=== PATIENT | female | born 1965 | race Caucasian/White ===

== ENCOUNTER → 2018-03-02 17:49 | Outpatient (CLI) | payer OTHER, SELFPAY | PROVIDERS: Family Provider Family Medicine; PCP Family Medicine; Visit Provider Chiropractor | DX: M99.03 Segmental and somatic dysfunction of lumbar region (principal); Z53.9 Procedure and treatment not carried out, unspecified reason; M99.04 Segmental and somatic dysfunction of sacral region; M99.05 Segmental and somatic dysfunction of pelvic region ==

== ENCOUNTER → 2018-03-07 11:24 | Outpatient (CLI) | payer OTHER, SELFPAY ==
--- NOTE | 2018-03-07 | DI.RAD.S_ITS ---
PROCEDURE: XR LUMBAR SPINE 6V W BENDING INDICATIONS: BACK PAIN TECHNIQUE: 7 views of the lumbar spine acquired. COMPARISON: None. FINDINGS: Bones: No fracture or focal osseous destruction. Trace retrolisthesis of L1 on L2. Diffuse endplate spurring and sclerosis. Mild dextrocurvature. There is diffuse facet arthropathy. Mild narrowing of the disc spaces from L2-S1. There is severe L1-L2 disc space narrowing. Soft tissues: Overlying bowel gas pattern is normal. No suspicious soft tissue calcifications. Flexion/extension: There is normal range of motion, with preserved normal alignment. IMPRESSION: Severe L1-L2 disc degeneration. No evidence of abnormal motion with flexion-extension lateral views. Diffuse lumbar disc degeneration and facet arthropathy Dictated by: Trey Rahman M.D. on 03/07/2018 at 13:41 Approved by: Trey Rahman M.D. on 03/07/2018 at 13:44
== END ==
PROVIDERS: Family Provider Family Medicine; PCP Family Medicine; Visit Provider Chiropractor
DX: M51.16 Intervertebral disc disorders with radiculopathy, lumbar region (principal); M47.26 Other spondylosis with radiculopathy, lumbar region; M54.9 Dorsalgia, unspecified; M99.03 Segmental and somatic dysfunction of lumbar region; M99.04 Segmental and somatic dysfunction of sacral region; M99.05 Segmental and somatic dysfunction of pelvic region; M79.18 Myalgia, other site
CPT/HCPCS: 72114

== ENCOUNTER 2018-12-04 09:34 | Emergency (ER) | payer OTHER, SELFPAY ==
[2018-12-04 09:48] VITALS: BP 140/86; PULSE 93; RESP 24; TEMP 37.2; O2SAT 100
--- NOTE | 2018-12-04 10:35 | DI.RAD.S_ITS ---
PROCEDURE: XR CHEST 2V INDICATIONS: known lung mass recent biopsy increasse pain TECHNIQUE: 2 views of the chest were acquired. COMPARISON: [facility], , CHEST 2 VIEW, 05/18/2017, 7:51. FINDINGS: Surgical changes and devices: Surgical clips are present over the left breast. Lungs and pleura: Lungs are clear. No pleural effusions or pneumothorax. Mediastinum: There is a questionable superior mediastinal mass along the right mediastinal border. The mediastinum demonstrates otherwise normal contours. Bones and chest wall: No suspicious bony abnormalities. Soft tissues appear unremarkable. IMPRESSION: Questionable right superior mediastinal mass. CT of the chest would be helpful to further characterize findings of clinically indicated. The acuity of this finding is unknown. Additionally, there is no recent imaging of the lung mass given in the patient history. It is unclear whether this mediastinal abnormality represents the recently biopsied mass or may represent a hematoma status post biopsy. No pneumothorax is visualized after recent biopsy. These findings were discussed Dr. Carroll at 10:26 AM on 12/04/18. Dictated by: Carlyn Ham M.D. on 12/04/2018 at 10:18 Approved by: Carlyn Ham M.D. on 12/04/2018 at 10:26
--- NOTE | 2018-12-04 10:39 | ED_ITS ---
HPI - SOB/Dyspnea General Chief Complaint: Shortness of Breath/Dyspnea Stated Complaint: breathing difficulty,pain Time Seen by Provider: 12/04/18 10:24 Source: patient Mode of arrival: ambulatory Limitations: no limitations History of Present Illness Patient's 53-year-old female presenting with history of breast cancer and smoking she has newly diagnosed lung cancer in her mediastinal area. She had a biopsy a couple days ago at [facility] and now having increased pain and pressure. She does have pain medication at home she is wondering how many more she can take. Definitely worse if she lies down or leans forward but sitting up seems to be manageable. She is scheduled for more testing next week. Patient quit smoking on October 11. MD Complaint: shortness of breath Related Data Home Medications Medication Instructions Recorded Confirmed levothyroxine [Synthroid] 150 mcg PO EVERY OTHER DAY #0 07/16/07 06/23/18 levothyroxine [Synthroid] 0.175 mg EVERY OTHER DAY #0 03/13/17 06/23/18 lorazepam 0.5 mg PO PRN PRN #0 03/13/17 06/23/18 fluoxetine 20 mg capsule 20 mg PO DAILY 06/23/18 06/23/18 omeprazole 20 mg capsule,delayed 20 mg PO BID cap 06/23/18 06/23/18 release Allergies Allergy/AdvReac Type Severity Reaction Status Date / Time Sulfa (Sulfonamide Allergy Unknown Verified 12/04/18 11:34 Antibiotics) [SULFA (SULFONAMIDE ANTIBIOTICS)] Review of Systems Review of Systems ROS Unobtainable: All systems reviewed & are unremarkable except as noted in HPI and below Constitutional Denies chills, Denies fever(s), Denies lethargy and Denies weakness Eyes Denies change in vision, Denies eye discharge, Denies irritation and Denies loss of vision Cardiovascular Denies chest pain, Denies irregular heart rhythm, Denies lightheadedness, Denies palpitations and Denies orthopnea Respiratory Reports as per HPI Gastrointestinal Gastrointestinal: Denies abdominal pain, Denies change in bowel habits, Denies diarrhea, Denies nausea and Denies vomiting Genitourinary Denies hematuria, Denies flank pain, Denies urinary incontinence and Denies urinary urgency Musculoskeletal Denies back pain, Denies muscle weakness, Denies numbness and Denies tingling Integumentary/Breasts Denies pruritus, Denies erythema, Denies rash and Denies wounds Neurologic Denies loss of vision, Denies numbness, Denies tingling and Denies weakness Endocrine Denies palpitations [facility] Social History marital status: household members: spouse occupational status: employed Smoking Status: Current every day smoker alcohol intake: current substance use type: does not use Exam Initial Vital Signs Initial Vital Signs: Vital Signs Temperature 99 F 12/04/18 09:48 Pulse Rate 93 H 12/04/18 09:48 Respiratory Rate 24 12/04/18 09:48 Blood Pressure 140/86 12/04/18 09:48 Pulse Oximetry 100 12/04/18 09:48 GENERAL: Alert female and in no acute distress. Sitting up right HEENT: Head atraumatic,EOMI, pupils reactive, CARDIOVASCULAR: Regular rate and rhythm without murmurs, rubs or gallops. RESPIRATORY: Breath sounds equal bilaterally, no wheezes rales or rhonchi. ABDOMEN: Soft, nontender. Normoactive bowel sounds all 4 quadrants. No guarding or rebound. EXTREMITIES: Normal range of motion, no clubbing or edema. Neurovascularly intact NEUROLOGICAL: Alert and oriented x4.Normal gait and speech. Cranial nerves II through XII grossly intact. SKIN: Warm, dry, no laceration, no petechiae, no rashes or lesions. Course Orders Ordered: ED Orders 12/04/18 10:35 XR chest 2V Stat 12/04/18 11:34 CT chest w con Stat 12/04/18 11:40 Basic Metabolic Panel Stat Complete Blood Count AUTO DIFF Stat Discontinued Medications Hydromorphone HCl (Dilaudid) 1 mg SUBCUT Q4H PRN PRN Reason: Pain, Severe (7-10) Last Admin: 12/04/18 10:53 Dose: 1 mg Ondansetron HCl (Zofran Odt) 4 mg SL NOW ONE Stop: 12/04/18 10:36 Last Admin: 12/04/18 10:53 Dose: 4 mg Vital Signs - 8 hr 12/04/18 09:48 12/04/18 13:10 Temperature 99 F Pulse Rate 93 H 61 Respiratory Rate 24 Blood Pressure 140/86 165/74 H Pulse Oximetry 100 100 MDM - SOB/Dyspnea Lab Data Attestation: I reviewed the patient's lab results. Result diagrams: 12/04/18 11:40 12/04/18 11:40 Lab Results 12/04/18 12/04/18 Range/Units 11:40 11:40 WBC 8.7 (4.5-11.0) X10^3/uL RBC 3.87 L (4.0-5.2) X10^6/uL Hgb 12.0 (12.0-16.0) g/dL Hct 35.4 L (36-46) % MCV 91.3 (80-100) fL MCH 31.1 (26-34) PG MCHC 34.0 (30-36) % RDW 13.1 (11.6-14.8) % Plt Count 255 (150-400) X10^3/uL Neut % (Auto) 65.7 (50-75) % Lymph % (Auto) 26.6 (25-40) % Lynn % (Auto) 6.8 (3-14) % Eos % (Auto) 0.3 L (2-4) % Baso % (Auto) 0.6 (0-2) % Neut # (Auto) 5700 (8177-7341) /uL Lymph # (Auto) 2300 (0233-5674) /uL Lynn # (Auto) 600 (0-900) /uL Eos # (Auto) 0 (0-450) /uL Baso # (Auto) 100 (0-100) /uL Sodium 139 (137-145) mmol/L Potassium 4.3 (3.4-5.1) mmol/L Chloride 104 (98-107) mmol/L Carbon Dioxide 28 (22-32) mmol/L BUN 9 (7-17) mg/dL Creatinine 0.60 (0.52-1.04) mg/dL Estimated GFR > 60.0 (>60) mL/min BUN/Creatinine Ratio 15.0 (6-22) Glucose 92 (70-100) mg/dL Calcium 9.2 (8.4-10.2) mg/dL Urine Dip Bedside Urine Glucose Negative Bedside Urine Bilirubin - Negative Bedside Urine Ketone - Negative Urine Specific [place] 1.010 Bedside Urine Occult Blood - Negative Bedside Urine pH 8.5 Bedside Urine Protein - Negative Bedside Urine Urobilinogen - Negative Bedside Urine Nitrite - Negative Bedside Urine Leukocytes - Negative Esterase Imaging Data Chest x-ray: Radiologist's impression: PROCEDURE: XR CHEST 2V INDICATIONS: known lung mass recent biopsy increasse pain TECHNIQUE: 2 views of the chest were acquired. COMPARISON: [facility], CHEST 2 VIEW, 05/18/2017, 7:51. FINDINGS: Surgical changes and devices: Surgical clips are present over the left breast. Lungs and pleura: Lungs are clear. No pleural effusions or pneumothorax. Mediastinum: There is a questionable superior mediastinal mass along the right mediastinal border. The mediastinum demonstrates otherwise normal contours. Bones and chest wall: No suspicious bony abnormalities. Soft tissues appear unremarkable. IMPRESSION: Questionable right superior mediastinal mass. CT of the chest would be helpful to further characterize findings of clinically indicated. The acuity of this finding is unknown. Additionally, there is no recent imaging of the lung mass given in the patient history. It is unclear whether this mediastinal abnormality represents the recently biopsied mass or may represent a hematoma status post biopsy. No pneumothorax is visualized after recent biopsy. These findings were discussed Dr. Carroll at 10:26 AM on 12/04/18. Dictated by: Carlyn Ham M.D. on 12/04/2018 at 10:18 CT scan - chest: Radiologist's impression: PROCEDURE: CT CHEST W CON INDICATIONS: Mediastinal mass with recent biopsy TECHNIQUE: After the administration of intravenous contrast, 5 mm thick sections acquired from the pulmonary apices to the posterior costophrenic angles. 1 mm axial lung, 5 mm thick coronal and sagittal reformats and 7 mm axial MIP were acquired. For radiation dose reduction, the following was used: automated exposure control, adjustment of mA and/or kV according to patient size. COMPARISON: None. FINDINGS: Image quality: Excellent. Lungs and pleura: There is a 0.9 x 1.1 cm nodule at the medial right lung base. There is a small low density right pleural effusion. There is mild right compressive atelectasis. Probable trace pulmonary scar is present at the left lung base. Mediastinum: Heart size is normal. No pericardial effusion. There is a 5.2 x 3.3 x 4.7 cm superior right hilar mass. This displaces the superior branches of the right pulmonary artery slightly inferiorly. There is subtle cortical erosion of the right lateral aspect of the T4 vertebral body. Thoracic aorta and central pulmonary arteries are normal in size. Scattered atheromatous calcifications are present within the aortic arch. Esophagus is normal in caliber. No hiatal hernia. Bones and chest wall: Surgical clips are present within the left breast. No suspicious bony lesions. No vertebral body compression fractures. No axillary or supraclavicular adenopathy by size criteria. Thyroid gland is not visualized and may be surgically absent.. Abdomen: Visualized upper abdominal solid organs appear normal. Upper abdominal bowel loops are normal in caliber. IMPRESSION: 1. Right hilar mass as above. No findings to suggest extravasation within the mass, within the mediastinum, or within the lung status post biopsy. 2. No pneumothorax after recent mediastinal biopsy. 3. Small low-density right pleural effusion and compressive atelectasis. 4. Right basilar pulmonary nodule suspicious for metastasis. 5. Right-sided T4 bony erosion at the medial margin of the right hilar mass. Dictated by: Carlyn Ham M.D. on 12/04/2018 at 11:24 MDM Narrative Medical decision making narrative: Patient has no couple occasion from recent biopsy. No hematoma present. However her mass has expanded slightly since her previous CT scan. They apparently have to redo the biopsy next week before she can start treatment. She is more concerned about her pain control. She takes long-acting extended release oxycodone 20 mg twice a day and she has breakthrough oxycodone as needed. She has only been taking 5 mg every 12 hours. I discussed with her about increasing that and how to do that. She understands and agrees. She has been taking a stool softener she has been constipated she says however that is getting better with the stool softener. Discharge Plan Departure Patient Disposition: Home Clinical Impression: Lung mass Discharge Date/Time: 12/04/18 13:10 Interventions: ED Discharge Assessment Last Done: 12/04/18 13:10 Instructions: Lung Cancer Activity Restrictions/Additional Instructions: *You have been diagnosed with lung cancer *What to do: Pain and pressure you are experiencing is from the mass and unfortunately will not get better until the mass decreased in size. *Continue to take medications as directed For severe pain you may increase oxycodone 5 mg to 10 mg at a time, only every 6 hours if needed for severe pain *Follow up with your primary care provider in 2-3 days *Return to ER if you should have increasing shortness of breath, increasing pain or any new, worsening or concerning symptoms Prescriptions: No Action levothyroxine [Synthroid] 150 MCG tablet 150 mcg PO EVERY OTHER DAY Qty: 0 RF: 0 levothyroxine [Synthroid] 175 MCG tablet 0.175 mg EVERY OTHER DAY Qty: 0 RF: 0 lorazepam 0.5 MG tablet 0.5 mg PO PRN PRNQty: 0 RF: 0 fluoxetine 20 mg capsule 20 mg PO DAILY RF: 0 omeprazole 20 mg capsule,delayed release(DR/EC) 20 mg PO BID RF: 0 Referrals: Robert Sommer DO [Primary Care Provider] -
[2018-12-04] MEDS: HYDROMORPHONE 2 MG INJ 1 MG SUBCUT (10:53)
[2018-12-04] MEDS: ONDANSETRON 4 MG ODT SL (10:53)
--- NOTE | 2018-12-04 11:06 | PC.NURSE ---
s/p bronchoscopy with biopsy 2 days ago, pt reports, increasing shortness of breath and increase in pain, despite all medications , she is taking. pain worsen when lying down.
--- NOTE | 2018-12-04 11:34 | DI.CT.S_ITS ---
PROCEDURE: CT CHEST W CON INDICATIONS: Mediastinal mass with recent biopsy TECHNIQUE: After the administration of intravenous contrast, 5 mm thick sections acquired from the pulmonary apices to the posterior costophrenic angles. 1 mm axial lung, 5 mm thick coronal and sagittal reformats and 7 mm axial MIP were acquired. For radiation dose reduction, the following was used: automated exposure control, adjustment of mA and/or kV according to patient size. COMPARISON: None. FINDINGS: Image quality: Excellent. Lungs and pleura: There is a 0.9 x 1.1 cm nodule at the medial right lung base. There is a small low density right pleural effusion. There is mild right compressive atelectasis. Probable trace pulmonary scar is present at the left lung base. Mediastinum: Heart size is normal. No pericardial effusion. There is a 5.2 x 3.3 x 4.7 cm superior right hilar mass. This displaces the superior branches of the right pulmonary artery slightly inferiorly. There is subtle cortical erosion of the right lateral aspect of the T4 vertebral body. Thoracic aorta and central pulmonary arteries are normal in size. Scattered atheromatous calcifications are present within the aortic arch. Esophagus is normal in caliber. No hiatal hernia. Bones and chest wall: Surgical clips are present within the left breast. No suspicious bony lesions. No vertebral body compression fractures. No axillary or supraclavicular adenopathy by size criteria. Thyroid gland is not visualized and may be surgically absent.. Abdomen: Visualized upper abdominal solid organs appear normal. Upper abdominal bowel loops are normal in caliber. IMPRESSION: 1. Right hilar mass as above. No findings to suggest extravasation within the mass, within the mediastinum, or within the lung status post biopsy. 2. No pneumothorax after recent mediastinal biopsy. 3. Small low-density right pleural effusion and compressive atelectasis. 4. Right basilar pulmonary nodule suspicious for metastasis. 5. Right-sided T4 bony erosion at the medial margin of the right hilar mass. Dictated by: Carlyn Ham M.D. on 12/04/2018 at 11:24 Approved by: Carlyn Ham M.D. on 12/04/2018 at 11:31
[2018-12-04 11:52] LABS: Add Manual Diff / Slide Review NO; Basophils Absolute Auto 100 /uL (0-100); Basophils Percent Auto 0.6 % (0-2); Eosinophils Absolute Auto 0 /uL (0-450); Eosinophils Percent Auto 0.3 % (2-4); Hematocrit 35.4 % (36-46); Lymphocytes Absolute Auto 2300 /uL (1100-4500); Lymphocytes Percent Auto 26.6 % (25-40); Mean Corpuscular Hemoglobin 31.1 PG (26-34); Mean Corpuscular Volume 91.3 fL (80-100); Monocytes Absolute Auto 600 /uL (0-900); Monocytes Percent Auto 6.8 % (3-14); Neutrophils Absolute Auto 5700 /uL (1500-7000); Neutrophils Percent Auto 65.7 % (50-75); Platelet Count 255 X10^3/uL (150-400); Red Blood Cell Count 3.87 X10^6/uL (4.0-5.2); Red Cell Distribution Width 13.1 % (11.6-14.8); White Blood Cell Count 8.7 X10^3/uL (4.5-11.0)
[2018-12-04 12:00] LABS: Blood Urea Nitrogen 9 mg/dL (7-17); Calcium 9.2 mg/dL (8.4-10.2); Carbon Dioxide 28 mmol/L (22-32); Chloride 104 mmol/L (98-107); Estimated Glomerular Filt Rate > 60.0 mL/min (>60); Glucose 92 mg/dL (70-100); HEMOLYSIS < 15 (0-50); Potassium 4.3 mmol/L (3.4-5.1); Sodium 139 mmol/L (137-145)
[2018-12-04 13:10] VITALS: BP 165/74; PULSE 61; O2SAT 100
== END 2018-12-04 13:10 | disposition home or self-care (01) ==
PROVIDERS: Emergency Provider Emergency Medicine; PCP Family Medicine
DX: R91.8 Other nonspecific abnormal finding of lung field (principal); R06.02 Shortness of breath
CPT/HCPCS: 36591; 71046; 71260; 80048; 81003; 85025; 96372; 99283; 99284; J1170; Q9967

== ENCOUNTER 2019-01-21 19:14 | Emergency (ER) | payer OTHER, SELFPAY ==
[2019-01-21 19:52] VITALS: BP 131/81; PULSE 89; RESP 18; TEMP 37.1; O2SAT 100; BMI 25.9
--- NOTE | 2019-01-21 20:29 | ED_ITS ---
HPI - Recheck/Abnormal Lab/Rx General Chief Complaint: Recheck/Abnormal Lab/Rx Stated Complaint: WAS TOLD BY TO COME IN NEEDS [facility] Time Seen by Provider: 01/21/19 20:00 Source: patient Mode of arrival: ambulatory Limitations: no limitations History of Present Illness HPI narrative: 53-year-old female currently undergoing treatment for lung cancer. Approximately 3 weeks ago had a Port-A-Cath placed in her left upper chest. Afterwards she did develop a cellulitis. She was placed on clindamycin however she states that she only took this for a day and a half. She was then switched to Keflex which she completed the course of this earlier in the week. Prior to all this she was on Augmentin for a fever. She completed a course of Augmentin before she had the Port-A-Cath placed. She has had 1 round of chemotherapy. Was a 28 day regimen to that she completed between 710 days ago. This was done through a PICC line in her right upper arm which has since been removed. The Port-A-Cath has yet to be accessed. Stated that earlier today she thought that the Port-A-Cath site was swelling and becoming more red. She took a picture of it consented to her oncologist who [facility]. Related Data Home Medications Medication Instructions Recorded Confirmed levothyroxine [Synthroid] 150 mcg PO EVERY OTHER DAY #0 07/16/07 06/23/18 levothyroxine [Synthroid] 0.175 mg EVERY OTHER DAY #0 03/13/17 06/23/18 lorazepam 0.5 mg PO PRN PRN #0 03/13/17 06/23/18 fluoxetine 20 mg capsule 20 mg PO DAILY 06/23/18 06/23/18 omeprazole 20 mg capsule,delayed 20 mg PO BID cap 06/23/18 06/23/18 release Allergies Allergy/AdvReac Type Severity Reaction Status Date / Time Sulfa (Sulfonamide Allergy Unknown Verified 01/21/19 19:51 Antibiotics) [SULFA (SULFONAMIDE ANTIBIOTICS)] Review of Systems Constitutional Constitutional: Denies fever(s) and Denies headache(s) ENT Ears, Nose, Mouth, and Throat: Denies vertigo and Denies headache(s) Cardiovascular Cardiovascular: Denies chest pain and Denies dyspnea Respiratory Respiratory: Denies dyspnea Gastrointestinal Gastrointestinal: Denies abdominal pain, Denies change in bowel habits and Denies diarrhea Genitourinary Genitourinary: Denies dysuria Musculoskeletal Musculoskeletal: Denies myalgias and Denies arthralgias Integumentary/Breasts Comments: Swelling and redness to the Port-A-Cath site left upper chest Neurologic Neurologic: Denies vertigo and Denies headache(s) Hematologic/Lymphatic Hematologic/Lymphatic: Denies easy bleeding and Denies easy bruising Allergic/Immunologic Allergic/Immunologic: Denies urticaria [facility] Medical History Anxiety disorder (Acute) Breast cancer in female (Acute) Depression (Acute) H/O malignant neoplasm of thyroid (Resolved) H/O: hysterectomy (Resolved) 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) History of hysterectomy (Acute) Thyroid cancer (Acute) Tobacco abuse (Acute) Social History marital status: household members: spouse occupational status: employed Smoking Status: Former smoker alcohol intake: current substance use type: does not use Exam Initial Vital Signs Initial Vital Signs: Vital Signs Temperature 98.7 F 01/21/19 19:52 Pulse Rate 89 01/21/19 19:52 Respiratory Rate 18 01/21/19 19:52 Blood Pressure 131/81 01/21/19 19:52 Pulse Oximetry 100 01/21/19 19:52 Const General: cooperative, healthy appearing, comfortable, well developed, well groomed and No acute distress Orientation: alert, awake and oriented x3 HENMT Head: normal to inspection and normocephalic Chest Other: Patient with 2 small stitches up in her lower neck that she states was scheduled to be taken out on Thursday. These are from the Port-A-Cath insertion. The area in her left upper chest looks well. The incision site looks well. There is minimal of any redness around the area. The Port-A-Cath can be felt under the skin in this area. Resp Effort & Inspection: normal respiratory effort Auscultation: clear to auscultation bilaterally Cardio Rate: regular rate Rhythm: regular rhythm Skin Other: Healing skin above the Port-A-Cath in left upper chest Neuro General: alert and awake Cognition: normal cognition Speech: speech normal Gait: normal gait Extrem General: normal to inspection and capillary refill normal Psych Appearance: grossly normal and well kempt Procedures Misc Procedure Name of Procedure: Suture removal Side (if applicable): left Location: Upper chest/lower neck Time out performed: No Patient tolerated procedure: Well and No complications Complications: none Course Orders Ordered: ED Orders 01/21/19 21:03 Basic Metabolic Panel Stat Complete Blood Count AUTO DIFF Stat Lactate (Lactic Acid) Stat Procalcitonin Stat Vital Signs Vital signs: Vital Signs - 8 hr 01/21/19 19:52 01/21/19 21:48 Temperature 98.7 F Pulse Rate 89 87 Respiratory Rate 18 16 Blood Pressure 131/81 129/80 Pulse Oximetry 100 100 MDM - Recheck/Abnormal Lab/Rx Lab Data Attestation: I reviewed the patient's lab results. Result diagrams: 01/21/19 21:03 01/21/19 21:03 Labs: Lab Results 01/21/19 01/21/19 01/21/19 Range/Units 21:03 21:03 21:03 WBC 3.3 L (4.5-11.0) X10^3/uL RBC 3.56 L (4.0-5.2) X10^6/uL Hgb 10.7 L (12.0-16.0) g/dL Hct 31.8 L (36-46) % MCV 89.1 (80-100) fL MCH 30.1 (26-34) PG MCHC 33.7 (30-36) % RDW 13.9 (11.6-14.8) % Plt Count 250 (150-400) X10^3/uL Neut % (Auto) 68.0 (50-75) % Lymph % (Auto) 17.7 L (25-40) % Tucker % (Auto) 12.8 (3-14) % Eos % (Auto) 1.1 L (2-4) % Baso % (Auto) 0.4 (0-2) % Neut # (Auto) 2300 (7929-6947) /uL Lymph # (Auto) 600 L (5391-9156) /uL Tucker # (Auto) 400 (0-900) /uL Eos # (Auto) 0 (0-450) /uL Baso # (Auto) 0 (0-100) /uL Sodium 136 L (137-145) mmol/L Potassium 3.9 (3.4-5.1) mmol/L Chloride 103 (98-107) mmol/L Carbon Dioxide 27 (22-32) mmol/L BUN 11 (7-17) mg/dL Creatinine 0.60 (0.52-1.04) mg/dL Estimated GFR > 60.0 (>60) mL/min BUN/Creatinine Ratio 18.3 (6-22) Glucose 124 H (70-100) mg/dL Lactate 0.8 (0.7-2.1) mmol/L Calcium 9.1 (8.4-10.2) mg/dL Procalcitonin (<0.5) ng/mL 01/21/19 Range/Units 21:03 WBC (4.5-11.0) X10^3/uL RBC (4.0-5.2) X10^6/uL Hgb (12.0-16.0) g/dL Hct (36-46) % MCV (80-100) fL MCH (26-34) PG MCHC (30-36) % RDW (11.6-14.8) % Plt Count (150-400) X10^3/uL Neut % (Auto) (50-75) % Lymph % (Auto) (25-40) % Tucker % (Auto) (3-14) % Eos % (Auto) (2-4) % Baso % (Auto) (0-2) % Neut # (Auto) (2266-1737) /uL Lymph # (Auto) (4128-6332) /uL Tucker # (Auto) (0-900) /uL Eos # (Auto) (0-450) /uL Baso # (Auto) (0-100) /uL Sodium (137-145) mmol/L Potassium (3.4-5.1) mmol/L Chloride (98-107) mmol/L Carbon Dioxide (22-32) mmol/L BUN (7-17) mg/dL Creatinine (0.52-1.04) mg/dL Estimated GFR (>60) mL/min BUN/Creatinine Ratio (6-22) Glucose (70-100) mg/dL Lactate (0.7-2.1) mmol/L Calcium (8.4-10.2) mg/dL Procalcitonin < 0.05 (<0.5) ng/mL MDM Narrative Medical decision making narrative: Patient is nontoxic appearing. The area of the skin over the Port-A-Cath left upper chest looks well. There is minimal if any redness around the area. It is nontender to touch. It is not warm to touch. There is no underlying fluid pocket consistent with a hematoma or seroma. She does not have an elevated white blood cell count. Does not elevated lactate. Does not have the elevated procalcitonin. I did discuss the case with her oncologist who asked that we get a surgical consult. I did talk with our general surgeon who stated that if I felt that there was no cellulitis and her labs were unremarkable that he did not feel he needed to come in to evaluate the patient. I do not feel that there is a continued infection. I do not feel that the general surgeon needed to come into the emergency department. Patient was discharged home. She is going to have a follow-up before her scheduled chemotherapy next week. Her Port-A-Cath was not accessed during her stay here. Discharge Plan Departure Patient Disposition: Home Clinical Impression: Encounter for care related to Port-a-Cath Discharge Date/Time: 01/21/19 21:48 Activity Restrictions/Additional Instructions: Your blood work and physical exam today are not consistent with a skin infection. You do need to keep an eye on this for the next several days. Have it evaluated before it is accessed on Thursday for your chemotherapy. Return to the emergency department for any new or worsening symptoms Prescriptions: No Action levothyroxine [Synthroid] 150 MCG tablet 150 mcg PO EVERY OTHER DAY Qty: 0 RF: 0 levothyroxine [Synthroid] 175 MCG tablet 0.175 mg EVERY OTHER DAY Qty: 0 RF: 0 lorazepam 0.5 MG tablet 0.5 mg PO PRN PRNQty: 0 RF: 0 fluoxetine 20 mg capsule 20 mg PO DAILY RF: 0 omeprazole 20 mg capsule,delayed release(DR/EC) 20 mg PO BID RF: 0 Referrals: Robert Sommer DO [Primary Care Provider] -
[2019-01-21 21:10] LABS: Add Manual Diff / Slide Review NO; Basophils Absolute Auto 0 /uL (0-100); Basophils Percent Auto 0.4 % (0-2); Eosinophils Absolute Auto 0 /uL (0-450); Eosinophils Percent Auto 1.1 % (2-4); Hematocrit 31.8 % (36-46); Hemoglobin 10.7 g/dL (12.0-16.0); Lymphocytes Absolute Auto 600 /uL (1100-4500); Lymphocytes Percent Auto 17.7 % (25-40); Mean Corpuscular HGB Conc 33.7 % (30-36); Mean Corpuscular Hemoglobin 30.1 PG (26-34); Mean Corpuscular Volume 89.1 fL (80-100); Monocytes Absolute Auto 400 /uL (0-900); Monocytes Percent Auto 12.8 % (3-14); Neutrophils Absolute Auto 2300 /uL (1500-7000); Platelet Count 250 X10^3/uL (150-400); Red Blood Cell Count 3.56 X10^6/uL (4.0-5.2); Red Cell Distribution Width 13.9 % (11.6-14.8); White Blood Cell Count 3.3 X10^3/uL (4.5-11.0)
[2019-01-21 21:21] LABS: Lactate (Lactic Acid) 0.8 mmol/L (0.7-2.1)
[2019-01-21 21:23] LABS: BUN Creatinine Ratio 18.3 (6-22); Blood Urea Nitrogen 11 mg/dL (7-17); Calcium 9.1 mg/dL (8.4-10.2); Carbon Dioxide 27 mmol/L (22-32); Chloride 103 mmol/L (98-107); Estimated Glomerular Filt Rate > 60.0 mL/min (>60); Glucose 124 mg/dL (70-100); HEMOLYSIS < 15 (0-50); Potassium 3.9 mmol/L (3.4-5.1); Sodium 136 mmol/L (137-145)
[2019-01-21 21:40] LABS: Procalcitonin < 0.05 ng/mL (<0.5)
[2019-01-21 21:48] VITALS: BP 129/80; PULSE 87; RESP 16; O2SAT 100
== END 2019-01-21 21:48 | disposition home or self-care (01) ==
PROVIDERS: Emergency Provider Emergency Medicine; PCP Family Medicine
DX: Z45.2 Encounter for adjustment and management of vascular access device (principal)
CPT/HCPCS: 36415; 80048; 83605; 84145; 85025; 99282; 99283

== ENCOUNTER 2019-02-27 12:20 | Emergency (ER) | payer OTHER, SELFPAY ==
[2019-02-27 12:27] VITALS: BP 108/72; PULSE 85; RESP 14; TEMP 37.1; O2SAT 98
--- NOTE | 2019-02-27 12:32 | DI.US.S_ITS ---
PROCEDURE: US PERIPH VENOUS LOW EXTREM RT INDICATIONS: CANCER PATIENT, RIGHT LOWER EXTREMITY SWELLING X 24HR TECHNIQUE: Real-time imaging, as well as color and pulse Doppler interrogation, were performed of the lower extremity deep veins from the inguinal ligament to the popliteal fossa. COMPARISON: None. FINDINGS: The common femoral, femoral and popliteal veins are normally compressible, and free of intraluminal thrombus. Color and pulse Doppler demonstrate normal phasic intraluminal flow. There is normal augmentation response to distal compression maneuver. IMPRESSION: No evidence of deep venous thrombosis in the right lower extremity. Dictated by: Edvin Box M.D. on 02/27/2019 at 12:28 Approved by: Edvin Box M.D. on 02/27/2019 at 12:30
[2019-02-27 15:02] VITALS: BP 124/80; PULSE 88; RESP 16; O2SAT 98
--- NOTE | 2019-02-27 19:38 | ED_ITS ---
HPI - Extremity Problem General Chief complaint: Extremity Problem,Nontraumatic Stated complaint: Right foot and leg swollen Time Seen by Provider: 02/27/19 13:36 Source: patient Mode of arrival: Ambulatory History of Present Illness HPI Narrative: Patient comes emergency department complaining right lower extremity swelling for about the last 3 days. Patient is currently being treated for cancer for concerned that she may a DVT. Patient denies any fevers or chills. No new shortness of breath. No chest pain. No cough. No abdominal pain. no injury to her leg. No other complaints at this time. Related Data Home Medications Medication Instructions Recorded Confirmed levothyroxine [Synthroid] 150 mcg PO EVERY OTHER DAY #0 07/15/06/23/18 levothyroxine [Synthroid] 0.175 mg EVERY OTHER DAY #0 03/13/17 06/23/18 lorazepam 0.5 mg PO PRN PRN #0 03/13/17 06/23/18 fluoxetine 20 mg capsule 20 mg PO DAILY 06/23/18 06/23/18 omeprazole 20 mg capsule,delayed 20 mg PO BID cap 06/23/18 06/23/18 release Allergies Allergy/AdvReac Type Severity Reaction Status Date / Time Sulfa (Sulfonamide Allergy Unknown Verified 02/27/19 12:31 Antibiotics) [SULFA (SULFONAMIDE ANTIBIOTICS)] Review of Systems Constitutional Constitutional: Denies chills, Denies fatigue, Denies fever(s), Denies frequent falls, Denies lethargy and Denies weakness Eyes Eyes: Denies change in vision, Denies eye discharge, Denies irritation and Denies loss of vision ENT Ears, Nose, Mouth, and Throat: Denies change in voice, Denies dizziness, Denies neck pain, Denies sore throat and Denies throat swelling Cardiovascular Cardiovascular: Denies chest pain, Denies irregular heart rhythm, Denies lightheadedness, Denies palpitations, Denies dyspnea, Denies dyspnea on exertion and Denies orthopnea Respiratory Respiratory: Denies cough, Denies dyspnea, Denies dyspnea on exertion and Denies wheezing Gastrointestinal Gastrointestinal: Denies abdominal pain, Denies change in bowel habits, Denies diarrhea, Denies nausea and Denies vomiting Genitourinary Genitourinary: Denies hematuria, Denies flank pain, Denies urinary incontinence and Denies urinary urgency Musculoskeletal Musculoskeletal: Denies back pain, Denies muscle weakness, Denies neck pain, Denies numbness and Denies tingling Comments: Right leg swelling Integumentary/Breasts Skin/Breast: Denies pruritus, Denies erythema, Denies rash and Denies wounds Neurologic Neurologic: Denies behavioral changes, Denies confusion, Denies dizziness, Denies frequent falls, Denies loss of vision, Denies numbness, Denies tingling and Denies weakness Psychiatric Psychiatric: Denies anxiety, Denies behavioral changes, Denies confusion, Denies depression, Denies homicidal ideation and Denies suicidal ideation Endocrine Endocrine: Denies fatigue, Denies flushing and Denies palpitations Hematologic/Lymphatic Hematologic/Lymphatic: Denies easy bruising Allergic/Immunologic Allergic/Immunologic: Denies urticaria, Denies throat swelling and Denies wheez ing Patient History Medical History Anxiety disorder (Acute) Breast cancer in female (Acute) Depression (Acute) H/O malignant neoplasm of thyroid (Resolved) 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) Thyroid cancer (Acute) Tobacco abuse (Acute) Surgical History H/O lumpectomy (Resolved) H/O thyroidectomy (Resolved) H/O: hysterectomy (Resolved) History of section (Acute) History of hysterectomy (Acute) Status post breast lumpectomy (Acute) Status post complete thyroidectomy (Acute) Family History Mother Breast cancer Father Cancer Social History marital status: household members: spouse occupational status: employed Smoking Status: Former smoker alcohol intake: current substance use type: does not use alcohol intake frequency: a few times a month Substance Use Type: does not use Exam Initial Vital Signs Initial Vital Signs: Vital Signs Temperature 98.8 F 02/27/19 12:27 Pulse Rate 85 02/27/19 12:27 Respiratory Rate 14 02/27/19 12:27 Blood Pressure 108/72 02/27/19 12:27 Pulse Oximetry 98 02/27/19 12:27 Const General: cooperative and well developed Nutritional Appearance: well nourished Orientation: alert, awake, oriented x3 and not confused [facility] Head: normocephalic and atraumatic Ears: external ears normal Nose: external nose normal and No nasal discharge Face and sinus: face symmetric and No dry mucous membranes Mouth: oral mucosae normal and moist mucous membranes Teeth and gingiva: dentition normal Throat: uvula midline Eyes General: appearance normal, both eyes and all related structures Eyelids: eyelids normal Conjunctivae: conjunctivae normal Sclera: sclerae normal Pupils: PERRL EOM: EOM intact bilaterally Neck Neck: normal visual inspection, trachea midline, No lymphadenopathy, No midline deformity and No JVD Lymphatic: No lymphedema Chest Chest: normal inspection of the chest Resp Effort & Inspection: normal respiratory effort, able to speak in complete s entences, no respiratory distress and no use of accessory muscles Auscultation: clear to auscultation bilaterally, no rales, no rhonchi and no wheezes Cardio Rate: regular rate Rhythm: regular rhythm Heart Sounds: no click, no gallops, no murmurs and no rubs Pulses: normal peripheral pulses GI Inspection: non-distended Palpation: soft, no hepatosplenomegaly, No guarding, No pulsatile mass and No tender Back/Spine/Pelvis Back: No CVA tenderness Cervical Spine: cervical ROM normal and No pain with cervical ROM Thoracic/Lumbar Spine: thoracic and lumbar spine normal to inspection Skin General: no rashes or lesions noted, No jaundice and No petechiae Neuro General: alert, oriented x3, gait normal and no focal motor deficits Speech: speech normal Extrem General: full ROM, calf tenderness (Mild, right calf) and edema (Right calf, mild) Psych Appearance: well kempt Mental Status: mental status grossly normal Attitude: cooperative Thought Content: normal and suicidality Judgment: judgment good Course Course Course Narrative: Patient was worked up with ultrasound of her right lower extremity, which was negative. No emergent cause of the patient's symptoms has been found. We discussed home management of symptoms, as well as the usual indications for return. Orders Ordered: ED Orders 02/27/19 12:32 US periph venous low extrem rt Stat Vital Signs Vital signs: Vital Signs - 8 hr 02/27/19 12:27 02/27/19 15:02 Temperature 98.8 F Pulse Rate 85 88 Respiratory Rate 14 16 Blood Pressure 108/72 Blood Pressure [Left Arm] 124/80 Pulse Oximetry 98 98 MDM - Extremity (Nontraumatic) Medical Records Attestation: I reviewed the patient's medical records. Imaging Data Venous US: Radiologist's impression: PROCEDURE: US PERIPH VENOUS LOW EXTREM RT INDICATIONS: CANCER PATIENT, RIGHT LOWER EXTREMITY SWELLING X 24HR TECHNIQUE: Real-time imaging, as well as color and pulse Doppler interrogation, were performed of the lower extremity deep veins from the inguinal ligament to the popliteal fossa. COMPARISON: None. FINDINGS: The common femoral, femoral and popliteal veins are normally compressible, and free of intraluminal thrombus. Color and pulse Doppler demonstrate normal phasic intraluminal flow. There is normal augmentation response to distal compression maneuver. IMPRESSION: No evidence of deep venous thrombosis in the right lower extremity. Dictated by: Edvin Box M.D. on 02/27/2019 at 12:28 Approved by: Edvin Box M.D. on 02/27/2019 at 12:30 Discharge Plan Departure Patient Disposition: Home Clinical Impression: Lower extremity edema Discharge Date/Time: 02/27/19 16:00 Instructions: DI for Peripheral Edema, Unilateral Activity Restrictions/Additional Instructions: Your ultrasound looks good--no blood clot is seen. You may use the pressure stockings, as needed for swelling in your legs. Please follow up with your oncologist, as planned. Prescriptions: No Action levothyroxine [Synthroid] 150 MCG tablet 150 mcg PO EVERY OTHER DAY Qty: 0 RF: 0 levothyroxine [Synthroid] 175 MCG tablet 0.175 mg EVERY OTHER DAY Qty: 0 RF: 0 lorazepam 0.5 MG tablet 0.5 mg PO PRN PRNQty: 0 RF: 0 fluoxetine 20 mg capsule 20 mg PO DAILY RF: 0 omeprazole 20 mg capsule,delayed release(DR/EC) 20 mg PO BID RF: 0 Referrals: Robert Sommer DO [Primary Care Provider] -
== END 2019-02-27 16:00 | disposition home or self-care (01) ==
PROVIDERS: Emergency Provider Emergency Medicine; PCP Family Medicine
DX: R60.0 Localized edema (principal)
CPT/HCPCS: 93971; 99282; 99283

== ENCOUNTER 2019-04-20 14:23 | Inpatient (IN) | payer OTHER, SELFPAY ==
[2019-04-20] VITALS (17 sets, daily range): BP systolic 99–140; BP diastolic 57–88; PULSE 97–112; RESP 18–38; TEMP 36.3–37.1; O2SAT 87–100; BMI 26.6
--- NOTE | 2019-04-20 14:33 | DI.RAD.S_ITS ---
PROCEDURE: XR CHEST 1V INDICATIONS: chest pain/soa TECHNIQUE: One view of the chest was acquired. COMPARISON: [facility], CR, XR CHEST 2V, 12/04/2018, 10:43. FINDINGS: Surgical changes and devices: Accessed left subclavian Mediport. A surgical clips at the base of the left neck and in the left breast. Lungs and pleura: Retrocardiac/left lung base density and possible small effusion. Minor patchy parenchymal changes in the right infrahilar region and also possible small effusion. No pleural effusions or pneumothorax. Mediastinum: Mediastinal contours appear normal. Heart size is normal. Bones and chest wall: No suspicious bony lesions. Overlying soft tissues appear unremarkable. IMPRESSION: 1. Bibasilar parenchymal opacities and small effusions, left greater than right. Dictated by: Jeannie Walter M.D. on 04/20/2019 at 16:43 Approved by: Jeannie Walter M.D. on 04/20/2019 at 16:45
[2019-04-20] MEDS: ALBUTEROL/IPRATROPIUM 3 ML AMPUL INH (14:51)
[2019-04-20] MEDS: MORPHINE 4 MG/ML INJ IV (15:12)
[2019-04-20] MEDS: ONDANSETRON 4 MG/2 ML INJ IV (15:12)
--- NOTE | 2019-04-20 15:19 | PC.NURSE ---
[id number] Patient began complaining of severe RUQ pain that radiates around to the back, she states this is new today and has been colicky, coming and going in severity throughout the day. At this time, pain is suddenly 10/10 with nausea. She took her own oral pain meds including 30MG oxycontin and 10mg Oxycodone. Patient is tearful and unable to sit still, grabbing RUQ and diaphoretic. HR is 110 and Respiratory rate is 40-50BPM. I spoke with Dr. Macias and verbal orders given for 4mg Morphine and 4MG zofran IV at this time.
--- NOTE | 2019-04-20 15:24 | PC.NURSE ---
Patient has known lung CA. Short of breath today with new right sided upper abdominal pain radiating through to right back/flank.
[2019-04-20 15:26] LABS: Add Manual Diff / Slide Review NO; Basophils Absolute Auto 0 /uL (0-100); Basophils Percent Auto 0.8 % (0-2); Eosinophils Absolute Auto 0 /uL (0-450); Eosinophils Percent Auto 0.4 % (2-4); Hematocrit 29.8 % (36-46); Lymphocytes Absolute Auto 700 /uL (1100-4500); Lymphocytes Percent Auto 13.8 % (25-40); Mean Corpuscular HGB Conc 33.7 % (30-36); Mean Corpuscular Hemoglobin 28.4 PG (26-34); Mean Corpuscular Volume 84.2 fL (80-100); Monocytes Absolute Auto 600 /uL (0-900); Monocytes Percent Auto 11.5 % (3-14); Neutrophils Absolute Auto 3900 /uL (1500-7000); Neutrophils Percent Auto 73.5 % (50-75); Platelet Count 448 X10^3/uL (150-400); Red Blood Cell Count 3.53 X10^6/uL (4.0-5.2); Red Cell Distribution Width 14.8 % (11.6-14.8); White Blood Cell Count 5.3 X10^3/uL (4.5-11.0)
[2019-04-20 15:34] LABS: D Dimer 685 ng/mL (<230)
--- NOTE | 2019-04-20 15:42 | PC.NURSE ---
Patient continues with tachypnea of 30-40BPM that are shallow. She has less pain at this time and appears to be sleepy with drooping head and closing eyes. While resting her Oxygen level is dipped to 87% on RA. WHen I speak with her, her Oxygen level immediately rises to 96% on RA. I placed her on 2LO2 NC and spoke with Dr. Macias at this time about the patient's tachypnea, hypoxia, and tachycardia at this time.
[2019-04-20 15:43] LABS: Alanine Aminotransferase 25 IU/L (<35); Albumin 4.3 g/dL (3.5-5.0); Albumin Globulin Ratio 1.2 (1.0-2.8); Alkaline Phosphatase 132 U/L (38-126); Aspartate Aminotransferase 24 IU/L (14-36); BUN Creatinine Ratio 26.7 (6-22); Bilirubin Total 0.5 mg/dL (0.2-1.3); Blood Urea Nitrogen 16 mg/dL (7-17); Calcium 9.7 mg/dL (8.4-10.2); Carbon Dioxide 28 mmol/L (22-32); Chloride 96 mmol/L (98-107); Creatine Kinase 34 U/L (30-135); Estimated Glomerular Filt Rate > 60.0 mL/min (>60); Globulin 3.5 g/dL (1.7-4.1); Glucose 119 mg/dL (70-100); HEMOLYSIS < 15 (0-50); Potassium 3.8 mmol/L (3.4-5.1); Sodium 136 mmol/L (137-145); Total Protein 7.8 g/dL (6.3-8.2)
[2019-04-20 15:54] LABS: Troponin I < 0.012 ng/mL (0.01-0.034)
--- NOTE | 2019-04-20 16:01 | ED.SOB ---
HPI - SOB/Dyspnea General Chief Complaint: Shortness of Breath/Dyspnea Stated Complaint: hard time breathing Time Seen by Provider: 04/20/19 16:01 Source: patient Mode of arrival: Ambulatory Limitations: no limitations History of Present Illness HPI Narrative: 53-year-old female comes to the emergency department with complaint of shortness of breath. Patient states that she has also had new onset of chest pain on the right. 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 Patient states for the last week and a half she has had increasing shortness of breath and today she developed right-sided chest pain that she describes as quite painful with deep and some lesion. She denies fevers. She denies cough, hemoptysis. Occasionally has some abdominal discomfort but feels it is more in the chest. She was nausea and vomited a couple days ago but none today. She has had normal bowel movements, no changes with urination. She has not appreciated new swelling in her lower extremities. She has had radiation her lungs. She is currently doing chemo immunotherapy. They decided to skip the of secondary to side effects. She has also had her thyroid removed. Patient has history of thyroidectomy, lumpectomy, and port placed. She has are to sulfa. She has quit smoking tobacco, no alcohol or illicit. Her primary is Su Sommer and her oncologist is Dr. Garnett through [facility] in [place]. Related Data Home Medications Medication Instructions Recorded Confirmed levothyroxine [Synthroid] 150 mcg PO EVERY OTHER DAY #0 07/16/07 04/20/19 levothyroxine [Synthroid] 0.175 mg EVERY OTHER DAY #0 03/13/17 04/20/19 fluoxetine 20 mg capsule 20 mg PO DAILY 06/23/18 04/20/19 albuterol sulfate [ProAir HFA] 2 puff INHALATION Q4H PRN 04/20/19 04/20/19 furosemide 20 mg PO DAILY 04/20/19 04/20/19 lorazepam 0.5 mg PO TID PRN 04/20/19 04/20/19 metoclopramide HCl 5 mg PO QID 04/20/19 04/20/19 ondansetron HCl 8 mg PO Q8H PRN 04/20/19 04/20/19 oxycodone 5 mg PO Q4H PRN 04/20/19 04/20/19 oxycodone [OxyContin] 30 mg PO Q8H 04/20/19 04/20/19 potassium chloride 10 meq PO DAILY 04/20/19 04/20/19 scopolamine base 1 patch TOPICAL Q3D 04/20/19 04/20/19 Allergies Allergy/AdvReac Type Severity Reaction Status Date / Time Sulfa (Sulfonamide Allergy Unknown Verified 02/27/19 12:31 Antibiotics) [SULFA (SULFONAMIDE ANTIBIOTICS)] Review of Systems Review of Systems ROS Unobtainable: All systems reviewed & are unremarkable except as noted in HPI and below Patient History Medical History Anxiety disorder (Acute) Breast cancer in female (Acute) Depression (Acute) H/O malignant neoplasm of thyroid (Resolved) 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) Thyroid cancer (Acute) Tobacco abuse (Acute) Surgical History H/O lumpectomy (Resolved) H/O thyroidectomy (Resolved) H/O: hysterectomy (Resolved) History of section (Acute) History of hysterectomy (Acute) Status post breast lumpectomy (Acute) Status post complete thyroidectomy (Acute) Social History marital status: household members: spouse occupational status: employed Smoking Status: Former smoker alcohol intake: current substance use type: does not use Smoking Status: Former smoker alcohol intake frequency: a few times a month Substance Use Type: does not use Exam Narrative Exam Narrative: GENERAL: Alert and oriented x three, well-nourished female in moderate distress. patient does appear to be uncomfortable. HEENT: Head normocephalic, atraumatic, EOMI, pupils reactive, face symmetric, moist mucous membranes NECK: Supple, full range of motion CARDIOVASCULAR: Regular rate and rhythm without murmurs, rubs or gallops. Patient does have a port on left side of her chest that looks clean dry and intact without any infection or redness. RESPIRATORY: Breath sounds decreased bilaterally, no wheezes rales or rhonchi. Positive for tachypnea. No accessory muscle use. No stridor. ABDOMEN: Soft, nontender. Normoactive bowel sounds all 4 quadrants. No guarding or rebound, rigidity, no mass : No CVA tenderness EXTREMITIES: Normal range of motion, no clubbing or edema in lower extremities. Neurovascularly intact NEUROLOGICAL: Cranial nerves II through XII grossly intact. Moving all extremities SKIN: Warm, dry, no petechiae, no rashes or lesions. Initial Vital Signs Initial Vital Signs: Vital Signs Temperature 97.5 F L 04/20/19 14:27 Pulse Rate 97 H 04/20/19 14:27 Respiratory Rate 22 04/20/19 14:27 Blood Pressure 140/84 04/20/19 14:27 Pulse Oximetry 97 04/20/19 14:27 Course Orders Ordered: ED Orders 04/20/19 14:33 Chest [XR chest 1V] Stat EKG-12 Lead Stat 04/20/19 15:15 Complete Blood Count AUTO DIFF Stat Comprehensive Metabolic Panel Stat D Dimer Stat Lipase Stat Procalcitonin Urgent Troponin & CK Cardiac Panel Stat 04/20/19 16:11 CT angio chest PE protocol Stat 04/20/19 17:21 US abdomen complete Stat Sodium Chloride (Normal Saline 0.9%) 500 mls @ 21 mls/hr IV CONT FRANSICO Last Admin: 04/20/19 17:56 Dose: 21 mls/hr Documented by: IRVING Discontinued Medications Albuterol/Ipratropium (Duoneb) 3 ml INH NOW ONE Stop: 04/20/19 14:49 Last Admin: 04/20/19 14:51 Dose: 3 ml Documented by: EYAL Diazepam (Valium) 2 mg IV NOW ONE Stop: 04/20/19 17:43 Last Admin: 04/20/19 17:57 Dose: 2 mg Documented by: IRVING Sodium Chloride (Normal Saline 0.9%) 1,000 mls @ 1,000 mls/hr IV BOLUS ONE Stop: 04/20/19 17:11 Last Infusion: 04/20/19 17:55 Dose: 0 mls/hr Documented by: Admin: 04/20/19 16:58 Dose: 1,000 mls/hr Documented by: IRVING Morphine Sulfate (Morphine) 4 mg IV NOW ONE Stop: 04/20/19 15:08 Last Admin: 04/20/19 15:12 Dose: 4 mg Documented by: IRVING Ondansetron HCl (Zofran) 4 mg IV NOW ONE Stop: 04/20/19 15:09 Last Admin: 04/20/19 15:12 Dose: 4 mg Documented by: IRVING Vital Signs Vital signs: Vital Signs - 8 hr 04/20/19 14:27 04/20/19 14:55 04/20/19 15:00 Temperature 97.5 F L Pulse Rate 97 H 97 H 112 H Respiratory Rate 22 38 H Blood Pressure 140/84 Blood Pressure [Left Arm] 140/88 Pulse Oximetry 97 96 95 04/20/19 15:30 04/20/19 15:44 04/20/19 15:48 Temperature Pulse Rate 110 H 110 H 109 H Respiratory Rate 36 H 36 H 35 H Blood Pressure Blood Pressure [Left Arm] 133/79 Pulse Oximetry 95 87 L 97 04/20/19 16:00 04/20/19 16:30 04/20/19 17:00 Temperature Pulse Rate 108 H 107 H 103 H Respiratory Rate 32 H 33 H 31 H Blood Pressure Blood Pressure [Left Arm] 122/73 103/70 114/65 Pulse Oximetry 99 100 100 04/20/19 17:22 04/20/19 17:30 04/20/19 18:00 Temperature Pulse Rate 108 H 101 H 101 H Respiratory Rate 23 37 H 29 H Blood Pressure Blood Pressure [Left Arm] 117/68 107/63 Pulse Oximetry 97 93 93 04/20/19 18:30 04/20/19 19:00 Temperature Pulse Rate 105 H 103 H Respiratory Rate 20 18 Blood Pressure Blood Pressure [Left Arm] 122/76 108/61 Pulse Oximetry 97 93 MDM - SOB/Dyspnea Lab Data Attestation: I reviewed the patient's lab results. Result diagrams: 04/20/19 15:15 04/20/19 15:15 Labs: Lab Results 04/20/19 04/20/19 04/20/19 Range/Units 15:15 15:15 15:15 WBC 5.3 (4.5-11.0) X10^3/uL RBC 3.53 L (4.0-5.2) X10^6/uL Hgb 10.0 L (12.0-16.0) g/dL Hct 29.8 L (36-46) % MCV 84.2 (80-100) fL MCH 28.4 (26-34) PG MCHC 33.7 (30-36) % RDW 14.8 (11.6-14.8) % Plt Count 448 H (150-400) X10^3/uL Neut % (Auto) 73.5 (50-75) % Lymph % (Auto) 13.8 L (25-40) % Mccormick % (Auto) 11.5 (3-14) % Eos % (Auto) 0.4 L (2-4) % Baso % (Auto) 0.8 (0-2) % Neut # (Auto) 3900 (5257-6124) /uL Lymph # (Auto) 700 L (9859-2705) /uL Mccormick # (Auto) 600 (0-900) /uL Eos # (Auto) 0 (0-450) /uL Baso # (Auto) 0 (0-100) /uL D-Dimer 685 H (<230) ng/mL Sodium 136 L (137-145) mmol/L Potassium 3.8 (3.4-5.1) mmol/L Chloride 96 L (98-107) mmol/L Carbon Dioxide 28 (22-32) mmol/L BUN 16 (7-17) mg/dL Creatinine 0.60 (0.52-1.04) mg/dL Estimated GFR > 60.0 (>60) mL/min BUN/Creatinine Ratio 26.7 H (6-22) Glucose 119 H (70-100) mg/dL Calcium 9.7 (8.4-10.2) mg/dL Total Bilirubin 0.5 (0.2-1.3) mg/dL AST 24 (14-36) IU/L ALT 25 (<35) IU/L Alkaline Phosphatase 132 H (38-126) U/L Total Creatine Kinase 34 (30-135) U/L CK-MB (CK-2) TNP CK-MB (CK-2) Rel Index TNP Troponin I < 0.012 (0.01-0.034) ng/mL Total Protein 7.8 (6.3-8.2) g/dL Albumin 4.3 (3.5-5.0) g/dL Globulin 3.5 (1.7-4.1) g/dL Albumin/Globulin Ratio 1.2 (1.0-2.8) Lipase (23-300) U/L 04/20/19 Range/Units 15:15 WBC (4.5-11.0) X10^3/uL RBC (4.0-5.2) X10^6/uL Hgb (12.0-16.0) g/dL Hct (36-46) % MCV (80-100) fL MCH (26-34) PG MCHC (30-36) % RDW (11.6-14.8) % Plt Count (150-400) X10^3/uL Neut % (Auto) (50-75) % Lymph % (Auto) (25-40) % Mccormick % (Auto) (3-14) % Eos % (Auto) (2-4) % Baso % (Auto) (0-2) % Neut # (Auto) (9854-7207) /uL Lymph # (Auto) (4562-4861) /uL Mccormick # (Auto) (0-900) /uL Eos # (Auto) (0-450) /uL Baso # (Auto) (0-100) /uL D-Dimer (<230) ng/mL Sodium (137-145) mmol/L Potassium (3.4-5.1) mmol/L Chloride (98-107) mmol/L Carbon Dioxide (22-32) mmol/L BUN (7-17) mg/dL Creatinine (0.52-1.04) mg/dL Estimated GFR (>60) mL/min BUN/Creatinine Ratio (6-22) Glucose (70-100) mg/dL Calcium (8.4-10.2) mg/dL Total Bilirubin (0.2-1.3) mg/dL AST (14-36) IU/L ALT (<35) IU/L Alkaline Phosphatase (38-126) U/L Total Creatine Kinase (30-135) U/L CK-MB (CK-2) CK-MB (CK-2) Rel Index Troponin I (0.01-0.034) ng/mL Total Protein (6.3-8.2) g/dL Albumin (3.5-5.0) g/dL Globulin (1.7-4.1) g/dL Albumin/Globulin Ratio (1.0-2.8) Lipase 23 (23-300) U/L Urine Dip Bedside Urine Glucose Negative Bedside Urine Bilirubin - Negative Bedside Urine Ketone - Negative Urine Specific [place] 1.02 Bedside Urine Occult Blood - Negative Bedside Urine pH 6.0 Bedside Urine Protein - Negative Bedside Urine Urobilinogen - Negative Bedside Urine Nitrite - Negative Bedside Urine Leukocytes - Negative Esterase Imaging Data Chest x-ray: Radiologist's impression: [address] [address] XRay Report Signed Patient: Marilu Alcantara PMR#: [id number] : 1965Acct:[id number] Age/Sex: 53 / FDate of Service: 04/20/19 Loc: ED Accession Number: [id number] Procedure: XR chest 1V Ordering Provider: Kenyatta Macias D.O. PROCEDURE: XR CHEST 1V INDICATIONS: chest pain/soa TECHNIQUE: One view of the chest was acquired. COMPARISON: [facility], , XR CHEST 2V, 12/04/2018, 10:43. FINDINGS: Surgical changes and devices: Accessed left subclavian Mediport. A surgical clips at the base of the left neck and in the left breast. Lungs and pleura: Retrocardiac/left lung base density and possible small effusion. Minor patchy parenchymal changes in the right infrahilar region and also possible small effusion. No pleural effusions or pneumothorax. Mediastinum: Mediastinal contours appear normal. Heart size is normal. Bones and chest wall: No suspicious bony lesions. Overlying soft tissues appear unremarkable. IMPRESSION: 1. Bibasilar parenchymal opacities and small effusions, left greater than right. Dictated by: Jeannie Walter M.D. on 04/20/2019 at 16:43 Approved by: Jeannie Walter M.D. on 04/20/2019 at 16:45 CT scan - chest: Radiologist's impression: [address] [address] [address] Scan Report Signed Patient: Marilu Alcantara PMR#: [id number] : 1965Acct:[id number] Age/Sex: 53 / FDate of Service: 04/20/19 Loc: ED Accession Number: [id number] Procedure: CT angio chest PE protocol Ordering Provider: Kenyatta Macias D.O. PROCEDURE: CT ANGIO CHEST PE PROTOCOL INDICATIONS: right chest pain, sob, hx lung ca, concern for PE. TECHNIQUE: After the administration of intravenous contrast, 2 mm thick sections acquired from the pulmonary apices to the posterior costophrenic angles. 3-dimensional maximum intensity projection (MIP) coronal and sagittal reformats were then acquired through the thorax. For radiation dose reduction, the following was used: automated exposure control, adjustment of mA and/or kV according to patient size. COMPARISON: None. FINDINGS: Image quality: Excellent. Pulmonary arteries: Pulmonary arteries are normal in size, and demonstrate no intraluminal filling defects to suggest central pulmonary embolism. Lungs and pleura: Lungs are clear except at the retrocardiac left lower lobe were dense alveolar consolidation is most consistent with aspiration or pneumonia. No pleural effusions or pneumothorax. Central and peripheral airways are patent. Mediastinum: Heart size is normal, without pericardial effusion. No mediastinal or hilar adenopathy is found. Thoracic aorta is normal in caliber and enhancement. Esophagus is generally normal in caliber, without hiatal hernia, but the middle third of the esophagus there is an area of unexplained soft tissue prominence measuring up to 2.6 cm AP and 3.1 cm transverse, just posterior and superior to the tracheal bifurcation. Bones and chest wall: No suspicious bony lesions. Ribs and thoracic spine appear intact throughout. Thyroid gland appears normal. No axillary or supraclavicular adenopathy. Abdomen: Visualized upper abdominal solid organs appear normal in the early arterial phase of enhancement except at the adrenal glands bilaterally where mass lesions appear present measuring up to 4.1 cm AP and 5.4 cm transverse at the right is adrenal gland and 5.0 cm AP and 3.0 cm transverse at the left adrenal gland. IMPRESSION: 1. No pulmonary embolus seen. 2. Retrocardiac left lower lobe pneumonia versus aspiration considered less likely. 3. Possible mid chest esophageal mass, measuring up to 2.6 x 3.1 cm. 4. Bilateral large adrenal masses, measuring up to 5.4 cm on the right and 5.0 cm on the left. Note: The contrast enhancement phase of this study is optimized for pulmonary artery visualization. Chest/abdomen/pelvis CT as screening for malignancy with oral and intravenous contrast is recommended in this clinical circumstance. The oral contrast could include paste barium for accurate detection of the exact lumen of the esophagus during CT scanning through the chest. Please also refer to the report from the 12/04/18 CT describing a right hilar mass with osseous erosion of a portion of the spine related to the mass. 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 Dictated by: Yasmany Rosales M.D. on 04/20/2019 at 16:49 Approved by: Yasmany Rosales M.D. on 04/20/2019 at 16:56 US - abdomen: Radiologist's impression: [id number] Kenyatta Macias DO Find Patient Imaging - Marilu Alcantara P 53 F 1965 ACTIVITY DATE EXAM STATUS AUTHOR 04/20/19 17:21 Signed Trey Rahman 04/20/19 16:11 Signed Yasmany Rosales 04/20/19 14:33 [place] [address] Ultrasound Report Signed Patient: Mrailu Alcantara PMR#: [id number] : 1965Acct:[id number] Age/Sex: 53 / FDate of Service: 04/20/19 Loc: ED Accession Number: [id number] Procedure: US abdomen complete Ordering Provider: Kenyatta Macias D.O. PROCEDURE: US ABDOMEN COMPLETE INDICATIONS: RIGHT CHEST/ABD PAIN, KNOWN CA TECHNIQUE: Real-time scanning was performed of the abdominal and retroperitoneal organs, with image documentation. COMPARISON: None. FINDINGS: Liver: Not well-visualized secondary to difficulties with patient positioning. Gallbladder: Gallstones are noted. No definite wall thickening. No sonographic Wilson sign identified. No pericholecystic fluid or Biliary ducts: Intrahepatic bile ducts are non-dilated. Extrahepatic bile duct caliber measures 2.1 mm. Normal is 6-7 mm or less in diameter, or 10 mm or less post-cholecystectomy. Pancreas: Not well-visualized Spleen: Spleen is normal in size and homogeneous in echotexture. Kidneys: Kidneys are normal in size and echotexture. Right kidney measures 11.0 cm long; left kidney measures 12.6 cm long. No hydronephrosis or nephrolithiasis. No solid masses. Aorta: Not well-seen Iliacs: Not well-seen IVC: Not well visualized Miscellaneous: No free abdominal fluid. IMPRESSION: Markedly suboptimal examination for reasons outlined above. Cholelithiasis without other specific sonographic criteria for acute cholecystitis. Please correlate clinically and with LFTs Dictated by: Trey Rahman M.D. on 04/20/2019 at 18:07 Approved by: Trey Rahman M.D. on 04/20/2019 at 18:10 ECG Data Attestation: I personally reviewed and interpreted this ECG as follows: Interpretation: Sinus rhythm, rate of 96, P are 146, QRS of 92 and QTC of 398. No ST elevation no depression. Patient has low voltage in the several leads. Patient has prior EKG from 05/18/2016 although with low voltage is difficult to compare those leads. MDM Narrative Medical decision making narrative: Patient comes in with increased chest pain on the right side. Patient states her pain is usually on the left. She states that this pain has had rapid on that in the last day. She has been increasingly short of breath for a week and a half. CTA is negative for PE patient's labs do not show a clear infection although there is questionable on her CT for pneumonia. Hemoglobin appears stable from January at 10. Troponin is negative. LFTs are negative with lipase, CTA shows no PE, masses and changes with esophagus. Retrocardiac changes consistent with pneumonia or possibly aspiration. Patient Has mid chest esophageal mass. Bilateral large adrenal masses. US does show gallstones. No definite wall thickening. No sonographic Wilson sign. No pericholecystic fluid. Biliary ducts are normal. kidneys are normal. patient's pain improved with morphine followed by some Valium. She is still quite anxious about pain control and discussed possible observation for pain management. Spoke with Dr. Urbina who accepts for observation. Discharge Plan Departure Patient Disposition: Admitted as Observation Clinical Impression: Chest pain, Lung cancer, Gallstones Instructions: DI for Gallstones Referrals: Robert Sommer DO [Primary Care Provider] -
--- NOTE | 2019-04-20 16:11 | DI.CT.S_ITS ---
PROCEDURE: CT ANGIO CHEST PE PROTOCOL INDICATIONS: right chest pain, sob, hx lung ca, concern for PE. TECHNIQUE: After the administration of intravenous contrast, 2 mm thick sections acquired from the pulmonary apices to the posterior costophrenic angles. 3-dimensional maximum intensity projection (MIP) coronal and sagittal reformats were then acquired through the thorax. For radiation dose reduction, the following was used: automated exposure control, adjustment of mA and/or kV according to patient size. COMPARISON: None. FINDINGS: Image quality: Excellent. Pulmonary arteries: Pulmonary arteries are normal in size, and demonstrate no intraluminal filling defects to suggest central pulmonary embolism. Lungs and pleura: Lungs are clear except at the retrocardiac left lower lobe were dense alveolar consolidation is most consistent with aspiration or pneumonia. No pleural effusions or pneumothorax. Central and peripheral airways are patent. Mediastinum: Heart size is normal, without pericardial effusion. No mediastinal or hilar adenopathy is found. Thoracic aorta is normal in caliber and enhancement. Esophagus is generally normal in caliber, without hiatal hernia, but the middle third of the esophagus there is an area of unexplained soft tissue prominence measuring up to 2.6 cm AP and 3.1 cm transverse, just posterior and superior to the tracheal bifurcation. Bones and chest wall: No suspicious bony lesions. Ribs and thoracic spine appear intact throughout. Thyroid gland appears normal. No axillary or supraclavicular adenopathy. Abdomen: Visualized upper abdominal solid organs appear normal in the early arterial phase of enhancement except at the adrenal glands bilaterally where mass lesions appear present measuring up to 4.1 cm AP and 5.4 cm transverse at the right is adrenal gland and 5.0 cm AP and 3.0 cm transverse at the left adrenal gland. IMPRESSION: 1. No pulmonary embolus seen. 2. Retrocardiac left lower lobe pneumonia versus aspiration considered less likely. 3. Possible mid chest esophageal mass, measuring up to 2.6 x 3.1 cm. 4. Bilateral large adrenal masses, measuring up to 5.4 cm on the right and 5.0 cm on the left. Note: The contrast enhancement phase of this study is optimized for pulmonary artery visualization. Chest/abdomen/pelvis CT as screening for malignancy with oral and intravenous contrast is recommended in this clinical circumstance. The oral contrast could include paste barium for accurate detection of the exact lumen of the esophagus during CT scanning through the chest. Please also refer to the report from the 12/04/18 CT describing a right hilar mass with osseous erosion of a portion of the spine related to the mass. 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 Dictated by: Yasmany Rosales M.D. on 04/20/2019 at 16:49 Approved by: Yasmany Rosales M.D. on 04/20/2019 at 16:56
[2019-04-20 16:25] LABS: Lipase 23 U/L (23-300)
[2019-04-20] MEDS: SODIUM CHLORIDE 0.9% 1,000 ML 1000 ML IV (16:58)
--- NOTE | 2019-04-20 17:21 | DI.US.S_ITS ---
PROCEDURE: US ABDOMEN COMPLETE INDICATIONS: RIGHT CHEST/ABD PAIN, KNOWN CA TECHNIQUE: Real-time scanning was performed of the abdominal and retroperitoneal organs, with image documentation. COMPARISON: None. FINDINGS: Liver: Not well-visualized secondary to difficulties with patient positioning. Gallbladder: Gallstones are noted. No definite wall thickening. No sonographic Wilson sign identified. No pericholecystic fluid or Biliary ducts: Intrahepatic bile ducts are non-dilated. Extrahepatic bile duct caliber measures 2.1 mm. Normal is 6-7 mm or less in diameter, or 10 mm or less post-cholecystectomy. Pancreas: Not well-visualized Spleen: Spleen is normal in size and homogeneous in echotexture. Kidneys: Kidneys are normal in size and echotexture. Right kidney measures 11.0 cm long; left kidney measures 12.6 cm long. No hydronephrosis or nephrolithiasis. No solid masses. Aorta: Not well-seen Iliacs: Not well-seen IVC: Not well visualized Miscellaneous: No free abdominal fluid. IMPRESSION: Markedly suboptimal examination for reasons outlined above. Cholelithiasis without other specific sonographic criteria for acute cholecystitis. Please correlate clinically and with LFTs Dictated by: Trey Rahman M.D. on 04/20/2019 at 18:07 Approved by: Trey Rahman M.D. on 04/20/2019 at 18:10
--- NOTE | 2019-04-20 17:27 | PC.NURSE ---
Ok to drink water per Dr. Macias. patient given cup of water upon request.
--- NOTE | 2019-04-20 17:53 | PC.NURSE ---
Patient with severe pain to spine where metastases are present while lying flatter during US. I spoke with Dr. Macias who ordered 2mg Valium. Patient sitting up in less discomfort at this time. She states, it hurts less when i sit up.
[2019-04-20] MEDS: SODIUM CHLORIDE 0.9% 500 ML 21 ML IV (17:56)
[2019-04-20] MEDS: diazePAM 10 MG/2 ML SYRINGE 2 MG IV (17:57)
[2019-04-20 20:06] LABS: Procalcitonin < 0.05 ng/mL (<0.5)
--- NOTE | 2019-04-20 20:33 | PC.NURSE ---
Addendum entered by Rosy Brantley R.N. 04/20/19 23:42: Pt's valuables secured in safe and pt's home meds secured in night pharmacy per Kerri streeter RN. Addendum entered by Rosy Brantley R.N. 04/20/19 23:32: Pt reports desires long acting narcotic @ 2300 as took @ 1500 in [facility] Hospitalist Yasmany has seen patient in room this evening. Pt desats with activity to commode with marked dyspnea. Saturation on room air with activity low 80's. Placed pt on 2L per NC. UA collected and sent. Pt states unable to lie down in bed. Prefers head of bed upright. States unable to tolerate scd's and these were left off after brief trial. Original Note: Pt to room 208 via stretcher from [facility] awake and alert. Prefers upright position in bed with knees drawn up. Pillow placed under pt's knees with warm blankets as per pt request. Pt is tearful. C/o headache pain which resolves with oral fluids. States RUQ pain okay now. Continuous pulse oximeter in place with room air saturation level 93%. Pt denies use of oxygen at home.
[2019-04-20 20:37] LABS: Magnesium 1.9 mg/dL (1.6-2.3)
[2019-04-20 21:06] LABS: Bacteria Urine None Seen
[2019-04-20] MEDS: LORazepam 0.5 MG TABLET PO (21:07)
[2019-04-20] MEDS: DOCUSATE 100 MG CAPSULE PO (21:09)
[2019-04-20] MEDS: HEPARIN 5,000 UNIT/ML VIAL 5000 UNIT SUBCUT (21:09)
[2019-04-20 21:17] LABS: Appearance Urine UA CLEAR; Bilirubin Urine UA NEGATIVE (NEGATIVE); Color Urine UA YELLOW; Glucose Urine UA NEGATIVE (Negative); Ketones Urine UA NEGATIVE (NEGATIVE); Leukocyte Esterase Urine UA NEGATIVE (NEGATIVE); Nitrite Urine UA NEGATIVE (Negative); Occult Blood Urine UA TRACE-INTACT (Negative); Protein Urine UA NEGATIVE (Negative); Specific Gravity Urine UA <=1.005 (1.000-1.035); Urobilinogen Urine UA 0.2 E.U./dL (0.2)
[2019-04-20] MEDS: ACETAMINOPHEN 325 MG TABLET 975 MG PO (21:17)
[2019-04-20 21:18] LABS: pH Urine UA 6.5 (4.5-8.0)
[2019-04-20 21:23] LABS: Culture Indicated Urine Cult Not Indicated; RBC Urine 0-1/HPF (0-5/HPF); Squamous Epithelial Cell Urine 0-1 /HPF (0-5/HPF); WBC Urine 0-1/HPF (0-5/HPF)
--- NOTE | 2019-04-20 22:01 | P.HP_ITS ---
History of Present Illness History of Present Illness Date Patient Seen: 04/20/19 Time Patient Seen: 21:02 Chief complaint: hard time breathing Narrative: Ms. Marilu Alcantara is a 53-year-old female with history significant for breast cancer, thyroid cancer, lung cancer status post radiation therapy and anxiety and depression who presents to the ER with shortness of breath. The patient reports having shortness breath that has been progressive over the last week to week and. She has had pre-existing left-sided chest pain but had a new onset rapidly progressing right-sided chest pain onset last night. She describes the pain as pleuritic increasing with deep inspiration. Upon arrival to the ER the patient describes the pain as a 7-8/10 and on control with her home pain medication regimen. The patient has had associated nausea vomiting a couple of days ago none currently. She does describe episodic edema with chemotherapeutic treatments. Patient denies having fevers but has frequent chills. She denies nasal congestion or sore throat. She had chest pain as above but denies palpitations. He has had progressive dyspnea on exertion but d enies cough. She has no complaints of abdominal pain and denies urinary symptoms. She uses Fleet enemas routinely for stooling. Upon arrival to the ER patient is tachycardic at rate 110 with a blood pressure of 122/73. She is tachypneic at 32 with room air saturation of 87% improving to 97% on 2 L/M nasal cannula. Chest x-ray obtained which finds bibasilar opacities with small effusion left greater than right. Patient was found have an elevated D-dimer at 685 and therefore underwent CTA which was negative for pulmonary embolism, identified bilateral large adrenal masses described as poss ible metastatic lesions, retrocardiac left lower lobe pneumonia versus aspiration, possible midesophageal mass measuring 2.6 x 3.1 cm. The radiologist interpretation makes note in regard to comparison with CT exam of 12/04/2018 or right hilar mass with osseous erosion. Patient also underwent abdominal ultrasound due to abdominal discomfort finding presence of gallstones negative Wilson sign with no leonel cholestatic fluid and no ductal dilation and normal spleen and pancreas. On laboratory analysis the patient has white blood cell count of 5.3, hemoglobin of 10.0 and hematocrit of 29.8 platelets of 448. Her electrolytes are limits with a BUN of 16 and creatinine of 0 6. Nonfasting glucose is 119. Liver functions she has a total bili of 0 5, AST of 27, ALT 25 and alkaline phosphatase of 132. Troponin and CK are both negative. EKG is obtained finding sinus rhythm with a ventricular rate of [address] or T-wave changes. Patient is admitted to the Medicine service for intractable pain in the setting of metastatic cancer. Patient History Medical History (Updated 04/21/19 @ 01:41 by GLADYS Smiley) Anxiety disorder (Acute) Breast cancer in female (Acute) Depression (Acute) H/O malignant neoplasm of thyroid (Resolved) History of chemotherapy (Acute) 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) History of radiation therapy (Acute) Lung cancer (Inactive) Thyroid cancer (Acute) Tobacco abuse (Acute) Surgical History (Updated 04/21/19 @ 01:41 by GLADYS Smiley) History of section (Acute) History of hysterectomy (Acute) History of vascular access device (Acute) Status post breast lumpectomy (Acute) Status post complete thyroidectomy (Acute) Family & Social History Social History: household members spouse Safety & Behavioral: Feels Safe in Current Yes Environment Been Physically Hurt or No Threatened By a Person Suicidal Ideation Description None Suicide Plan Description No Plan Tobacco & Substance use: Smoking Status Former smoker alcohol intake former alcohol intake frequency a few times a month Substance Use Type does not use Comment: For the patient lives in his 2 story single family home with living quarters on the bottom or with her to whom she has been for 9 years. The patient states her father and mother both had cancer and has no siblings. She has 2 children with her oldest daughter having gynecological issues. Occupation: Not currently working, previously worked in [employer]. Smoking: Patient quit smoking in November when diagnosed lung cancer before which she smoked 1 pack per day since age 17, 36 pack years. Alcohol: Patient endorses prior heavy alcohol consumption but is no longer drinking, sober since November. Substance use: Patient denies recreational pharmaceuticals, she has tried CBD for pain but not currently using canaboid products Advanced directives: The patient states her desire to be FULL CODE. She designates her Ankur Alcantara to be her surrogate decision maker. Meds Home Medications and Allergies Home Medications Medication Instructions Recorded Confirmed Type levothyroxine [Synthroid] 150 mcg PO EVERY OTHER DAY #0 07/16/07 04/20/19 History levothyroxine [Synthroid] 0.175 mg EVERY OTHER DAY #0 03/13/17 04/20/19 History fluoxetine 20 mg capsule 20 mg PO DAILY 06/23/18 04/20/19 History albuterol sulfate [ProAir HFA] 2 puff INHALATION Q4H PRN 04/20/19 04/20/19 History furosemide 20 mg PO DAILY 04/20/19 04/20/19 History lorazepam 0.5 mg PO TID PRN 04/20/19 04/20/19 History metoclopramide HCl 5 mg PO QID 04/20/19 04/20/19 History ondansetron HCl 8 mg PO Q8H PRN 04/20/19 04/20/19 History oxycodone 5 mg PO Q4H PRN 04/20/19 04/20/19 History oxycodone [OxyContin] 30 mg PO Q8H 04/20/19 04/20/19 History potassium chloride 10 meq PO DAILY 04/20/19 04/20/19 History scopolamine base 1 patch TOPICAL Q3D 04/20/19 04/20/19 History Allergies Allergy/AdvReac Type Severity Reaction Status Date / Time Sulfa (Sulfonamide Allergy Unknown Verified 02/27/19 12:31 Antibiotics) [SULFA (SULFONAMIDE ANTIBIOTICS)] Review of Systems Review of Systems Narrative: Systems are reviewed and are unremarkable and noted in the HPI. Exam Vital Signs (past 8 hours): - 04/20/19 14:27 04/20/19 14:55 04/20/19 15:00 Temperature 97.5 F L Pulse Rate 97 H 97 H 112 H Respiratory Rate 22 38 H Blood Pressure 140/84 Blood Pressure [Left Arm] 140/88 Pulse Oximetry 97 96 95 04/20/19 15:30 04/20/19 15:44 04/20/19 15:48 Temperature Pulse Rate 110 H 110 H 109 H Respiratory Rate 36 H 36 H 35 H Blood Pressure Blood Pressure [Left Arm] 133/79 Pulse Oximetry 95 87 L 97 04/20/19 16:00 04/20/19 16:30 04/20/19 17:00 Temperature Pulse Rate 108 H 107 H 103 H Respiratory Rate 32 H 33 H 31 H Blood Pressure Blood Pressure [Left Arm] 122/73 103/70 114/65 Pulse Oximetry 99 100 100 04/20/19 17:22 04/20/19 17:30 04/20/19 18:00 Temperature Pulse Rate 108 H 101 H 101 H Respiratory Rate 23 37 H 29 H Blood Pressure Blood Pressure [Left Arm] 117/68 107/63 Pulse Oximetry 97 93 93 04/20/19 18:30 04/20/19 19:00 04/20/19 19:55 Temperature Pulse Rate 105 H 103 H 109 H Respiratory Rate 20 18 24 Blood Pressure Blood Pressure [Left Arm] 122/76 108/61 116/72 Pulse Oximetry 97 93 100 04/20/19 20:14 Temperature 98.8 F Pulse Rate 109 H Respiratory Rate 20 Blood Pressure 125/66 Blood Pressure [Left Arm] Pulse Oximetry 94 Oxygen Delivery Method Room Air Oxygen Flow Rate 2 Narrative Exam Narrative: GENERAL APPEARANCE: well developed, adequately nourished, moderately ill- appearing. HEENT: Normocephalic, PERRLA, sluggish, sclera anicteric, conjunctiva clear, EOMs intact without nystagmus, no sinus tenderness to percussion, no rhinorrhea, mucous membranes are moist and pink without lesions or exudate. NECK/THYROID: neck supple, no JVD, no carotid bruit, no thyromegaly, trachea midline. LYMPH NODES: no cervical or supraclavicular lymphadenopathy. SKIN: [place], warm and dry, no visible lesions, no rashes, ulcerations or petechiae. HEART: regular rate and rhythm, S1-S2, no murmur, no rubs or gallops, brisk capillary refill, no edema LUNGS: Breath sounds diminished, clear to auscultation bilaterally, no coarseness crackles or wheezing, no cough present CHEST: Symmetrical movement, shallow tidal volume, pain on deep inspiration, no accessory muscle use, no pain to AP and lateral compression. ABDOMEN: Soft, no distention, RUQ abdominal tenderness, no guarding or peritoneal signs, no organomegaly, right flank tenderness, active bowel tones. EXTREMITIES: moves all extremities, strength is 5/5 and symmetrical, no deformities or joint effusions. NEUROLOGIC: AAO x4, no focal neurologic deficits, cranial nerves II-XII grossly intact, sensation intact to light touch, hearing grossly normal to speech. PSYCH: Fair to poor eye contact, patient appears depressed, cooperative, appropriate with stable behavior Objective Labs Result Diagrams: 04/20/19 15:15 04/20/19 15:15 Labs: Laboratory Results - last 24 hr 04/20/19 04/20/19 04/20/19 15:15 15:15 15:15 WBC 5.3 RBC 3.53 L Hgb 10.0 L Hct 29.8 L MCV 84.2 MCH 28.4 MCHC 33.7 RDW 14.8 Plt Count 448 H Neut % (Auto) 73.5 Lymph % (Auto) 13.8 L [place] % (Auto) 11.5 Eos % (Auto) 0.4 L Baso % (Auto) 0.8 Neut # (Auto) 3900 Lymph # (Auto) 700 L [place] # (Auto) 600 Eos # (Auto) 0 Baso # (Auto) 0 D-Dimer 685 H Sodium 136 L Potassium 3.8 Chloride 96 L Carbon Dioxide 28 BUN 16 Creatinine 0.60 Estimated GFR > 60.0 BUN/Creatinine Ratio 26.7 H Glucose 119 H Calcium 9.7 Magnesium Total Bilirubin 0.5 AST 24 ALT 25 Alkaline Phosphatase 132 H Total Creatine Kinase 34 CK-MB (CK-2) TNP CK-MB (CK-2) Rel Index TNP Troponin I < 0.012 Total Protein 7.8 Albumin 4.3 Globulin 3.5 Albumin/Globulin Ratio 1.2 Lipase Procalcitonin Urine Color Urine Appearance Urine pH Ur Specific [place] Urine Protein Urine Glucose (UA) Urine Ketones Urine Occult Blood Urine Nitrate Urine Bilirubin Urine Urobilinogen Ur Leukocyte Esterase Urine RBC Urine WBC Ur Squamous Epith Cells Urine Bacteria Ur Culture Indicated? 04/20/19 04/20/19 04/20/19 15:15 15:15 15:15 WBC RBC Hgb Hct MCV MCH MCHC RDW Plt Count Neut % (Auto) Lymph % (Auto) [place] % (Auto) Eos % (Auto) Baso % (Auto) Neut # (Auto) Lymph # (Auto) [place] # (Auto) Eos # (Auto) Baso # (Auto) D-Dimer Sodium Potassium Chloride Carbon Dioxide BUN Creatinine Estimated GFR BUN/Creatinine Ratio Glucose Calcium Magnesium 1.9 Total Bilirubin AST ALT Alkaline Phosphatase Total Creatine Kinase CK-MB (CK-2) CK-MB (CK-2) Rel Index Troponin I Total Protein Albumin Globulin Albumin/Globulin Ratio Lipase 23 Procalcitonin < 0.05 Urine Color Urine Appearance Urine pH Ur Specific [place] Urine Protein Urine Glucose (UA) Urine Ketones Urine Occult Blood Urine Nitrate Urine Bilirubin Urine Urobilinogen Ur Leukocyte Esterase Urine RBC Urine WBC Ur Squamous Epith Cells Urine Bacteria Ur Culture Indicated? 04/20/19 20:45 WBC RBC Hgb Hct MCV MCH MCHC RDW Plt Count Neut % (Auto) Lymph % (Auto) [place] % (Auto) Eos % (Auto) Baso % (Auto) Neut # (Auto) Lymph # (Auto) [place] # (Auto) Eos # (Auto) Baso # (Auto) D-Dimer Sodium Potassium Chloride Carbon Dioxide BUN Creatinine Estimated GFR BUN/Creatinine Ratio Glucose Calcium Magnesium Total Bilirubin AST ALT Alkaline Phosphatase Total Creatine Kinase CK-MB (CK-2) CK-MB (CK-2) Rel Index Troponin I Total Protein Albumin Globulin Albumin/Globulin Ratio Lipase Procalcitonin Urine Color Yellow Urine Appearance Clear Urine pH 6.5 Ur Specific [place] <=1.005 Urine Protein Negative Urine Glucose (UA) Negative Urine Ketones Negative Urine Occult Blood Trace-intact Urine Nitrate Negative Urine Bilirubin Negative Urine Urobilinogen 0.2 Ur Leukocyte Esterase Negative Urine RBC 0-1/hpf Urine WBC 0-1/hpf Ur Squamous Epith Cells 0-1 /hpf Urine Bacteria None seen Ur Culture Indicated? Cult not indicated Assessment & Plan Assessment & Plan narrative: This is a 53-year-old female patient with breast thyroid and lung cancer who has undergone radiation therapy and is currently undergoing chemotherapy however the patient declined April treatment for the holidays. 1. A acute hypoxic respiratory failure, present on admission, active. -upon arrival to the ER the patient was tachypneic respiratory rate 32, room air saturation of 87% for up P/F ratio of 252. -patient responded well to oxygen therapy with saturating increasing 97% however patient continued have shallow tidal volume related to chest pain. -patient with findings of bibasilar opacities on chest x-ray and left lower lobe retrocardiac pneumonia on imaging. -respiratory therapy to consult, supplemental oxygen as needed pain oxygen saturation greater than 92%. -ceftriaxone 2 g IV daily -patient has home medication of albuterol inhaler, ordered albuterol nebulizer every 2 hours as needed. -will work to manage pain and improve ventilation. 2. Chest pain, acute on chronic, present on admission, active. -patient sources history of left chest pain that has been longstanding. Developed right-sided chest pain last night that progressed rapidly today es calating to 7-8/10 pain level. -positive D-dimer at 685, CT angio is negative for pulmonary embolism. -patient has retroesophageal mass and pneumonia both potential etiology of increasing pleuritic pain. -patient has been using her oxycodone 30 mg every 8 hours and has oxycodone 5 mg every 4 hours which was insufficient to control her pain. -in the ER the patient received Valium 2 mg as well as 4 mg of morphine with improved pain control as evidence by decreased respiratory rate and improved oxy genation. -will continue oxy Contin 30 mg every 8 hours and oxycodone 5 mg every 4 hours for moderate pain and morphine 4 mg IV every 4 hours as needed for breakthrough severe pain. 3. Left lower lobe pneumonia, acute, present on admission, active. -patient is on chemotherapy with impaired immune response. afebrile initial procalcitonin is negative at less than 0.05. -chest x-ray with findings bibasilar opacities and CT scan finding of retrocardiac left lower lobe pneumonia. -patient started on ceftriaxone 2 g daily. 4. Lung cancer, chronic, present on admission, active. -prior smoker with 35 pack year history, history of thyroid cancer as well as breast cancer. -CT scan in November of 2018 notes right hilar mass with erosion into adjacent osseous structures. 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 -patient follows with Dr. Garnett oncology. -will continue patient's home regimen of Reglan 5 mg 4 times daily and Zofran 8 mg every 8 hours for management of nausea. -patient takes Lasix 20 mg daily for post chemotherapeutic edema, will hold at this time as patient has no edema and has low normal blood pressures. 5. Right upper quadrant abdominal pain, present on admission, active. -unclear etiology but may be related to adrenal mass and retroperitoneal space with tenderness along the right posterior flank. Procalcitonin is negative. -abdominal ultrasound identifies cholelithiasis but no cholecystitis or ductal dilatation. No evidence of liver involvement with normal bilirubin AST and ALT. No other pathology identified on exam. -will manage pain, monitor CBC and chemistries. 6. Constipation, chronic, present on admission, active -patient's laxative dependent for management of bowel function on high-dose opiates. -patient reports using Fleet's enemas daily. She has used MiraLax and other stool softeners and laxatives previously with incomplete success. -docusate 100 mg twice daily, Doculax per rectum as needed or Fleet enema daily as needed for constipation. 7. Depression with anxiety, chronic, present on admission, active -will continue patient's home regimen of fluoxetine 20 mg daily. -will continue home regimen of lorazepam 0.5 mg 3 times daily as needed which will also augment pain management. 8. Hypothyroidism, acquired, present on admission, stable -patient with history of thyroidectomy for thyroid cancer. -patient is on alternating doses of levothyroxine 150 mcg every other day al ternating with 175 mcg every other day. VTE prophylaxis: SCDs and heparin b.i.d. Diet: Heart healthy The patient is admitted to the hospital for intractable pain and acute hypoxic respiratory failure and related risks of adverse events or complications. The patient is admitted as inpatient with expected length of stay to be greater than 2 midnights. Scores GCS [place] coma scale eye opening: Spontaneous [place] coma scale verbal response: Orientated [place] coma scale motor response: Obey commands [place] coma scale total score: 15 Quality VTE Deep Vein Thrombosis/Pulmonary Embolism Present on Admission: No
[2019-04-20] MEDS: METOCLOPRAMIDE HCL 10 MG TABLET 5 MG PO (22:45)
[2019-04-20] MEDS: OXYCODONE ER 10 MG TAB 30 MG PO (22:47)
[2019-04-21] VITALS (7 sets, daily range): BP systolic 106–131; BP diastolic 67–78; PULSE 76–91; RESP 15–18; TEMP 36.6–37.1; O2SAT 91–100
[2019-04-21] MEDS: CEFTRIAXONE 2 GM/50 ML FROZ.PIGGY IV (03:12)
[2019-04-21] MEDS: OXYCODONE ER 10 MG TAB 30 MG PO ×3 (04:52→21:10)
[2019-04-21] MEDS: ACETAMINOPHEN 325 MG TABLET 975 MG PO ×3 (04:53→21:08)
[2019-04-21 06:36] LABS: Add Manual Diff / Slide Review NO; Basophils Absolute Auto 0 /uL (0-100); Basophils Percent Auto 0.4 % (0-2); Eosinophils Absolute Auto 0 /uL (0-450); Eosinophils Percent Auto 0.8 % (2-4); Hematocrit 24.9 % (36-46); Hemoglobin 8.9 g/dL (12.0-16.0); Lymphocytes Absolute Auto 500 /uL (1100-4500); Lymphocytes Percent Auto 13.3 % (25-40); Mean Corpuscular HGB Conc 35.8 % (30-36); Mean Corpuscular Hemoglobin 29.9 PG (26-34); Mean Corpuscular Volume 83.4 fL (80-100); Monocytes Absolute Auto 500 /uL (0-900); Monocytes Percent Auto 12.5 % (3-14); Neutrophils Absolute Auto 2700 /uL (1500-7000); Platelet Count 344 X10^3/uL (150-400); Red Blood Cell Count 2.98 X10^6/uL (4.0-5.2); Red Cell Distribution Width 14.7 % (11.6-14.8); White Blood Cell Count 3.7 X10^3/uL (4.5-11.0)
[2019-04-21 06:47] LABS: Blood Urea Nitrogen 10 mg/dL (7-17); Calcium 9.1 mg/dL (8.4-10.2); Carbon Dioxide 31 mmol/L (22-32); Chloride 98 mmol/L (98-107); Estimated Glomerular Filt Rate > 60.0 mL/min (>60); Glucose 109 mg/dL (70-100); HEMOLYSIS < 15 (0-50); Potassium 3.9 mmol/L (3.4-5.1); Sodium 137 mmol/L (137-145)
[2019-04-21 07:24] LABS: Procalcitonin < 0.05 ng/mL (<0.5)
[2019-04-21] MEDS: OXYCODONE IR 10 MG TABLET PO ×2 (09:43→14:55)
[2019-04-21] MEDS: HEPARIN 5,000 UNIT/ML VIAL 5000 UNIT SUBCUT ×2 (09:44→21:10)
[2019-04-21] MEDS: FLUoxetine 20 MG CAPSULE 40 MG PO (09:44)
[2019-04-21] MEDS: METOCLOPRAMIDE HCL 10 MG TABLET 5 MG PO ×4 (09:44→21:08)
[2019-04-21] MEDS: DOCUSATE 100 MG CAPSULE PO ×2 (09:45→21:09)
--- NOTE | 2019-04-21 10:57 | PT.IIE ---
this is to certify that I have reviewed this documentation and is involved with this pt's care. 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 She is not able to walk community distances due to decreased activtiy tolerance. Activities of Daily Living and IADL's Pt reports that her helped her with ADL's as needed. She needed help with some components of dressing and bathing. Pt reported that her daughter helps with chores around the house. Social History Household Members spouse,family Living Arrangements House Number of Floors (Floors) Two Floors Number of Stairs To Enter/Railing? pt has no steps to get into her house. Pt does not use the second floor of her house, so does not require any stairs. Home Environment Standard Height Toilet,Tub/ Shower Home Equipment Shower Seat with Backrest,Hand Held Shower Employment Status Retired Additional Social History Comment works from [employer] and pt will not have anyone with her during this time M2 PT-IP Current Condition Start: 04/21/19 13:03 Freq: NEEDED Status: Active Protocol: Document 04/21/19 10:57 MT (Rec: 04/21/19 14:32 MT [email or web address]) Physical Therapy Current Condition Current Condition Evaluation Date 04/21/19 Treatment Diagnosis hypoxic respiratory lung failure with hx of lung CA; difficulty with breath Onset Date 04/20/19 Precautions Other Precautions low O2 sats Weight Bearing Status Weight Bearing Status Full Weight Bearing M3 PT-IP Subjective Start: 04/21/19 13:03 Freq: NEEDED Status: Active Protocol: Document 04/21/19 10:57 MT (Rec: 04/21/19 14:32 MT [email or web address]) Subjective Physical Therapy Visit Type Type Initial Evaluation Visit Start Time 10:57 Visit Stop Time 11:31 Total Visit Minutes 34 Number of CLEANING CUSTODIAN Visits 0 Physical Therapy Visit Comments Patient Comments Pt was willign to participate in evaluation with PT. Therapy Pain Assessment Pain When Pain Assessed At Rest Pain Present Pain Present Denied Pain M4 PT-IP Mobility and Gait Start: 04/21/19 13:03 Freq: NEEDED Status: Active Protocol: Document 04/21/19 10:57 MT (Rec: 04/21/19 14:32 MT [email or web address]) PT-Bed Mobility Assessment Supine to Sit Supine to Sit Standby Assistance Sit to Supine Sit to Supine Standby Assistance Scooting Scooting to Edge of Bed Standby Assistance PT-Transfer Assessment Sit to and From Stand Sit to and from Stand Contact Guard Assistance,1 Person Assistance,Use of Upper Extremities Equipment Transfer Assistive Device Gait Belt,Front Wheeled Walker Orthotic/Prosthetic Devices or Brace: No Transfers Transfer Destination Bed Transfer Technique sit to stand Comments Mobility Comments Pt was found in bed on 2L supplemental O2 prior to start of evaluation. All O2 readings were monitored on supplemental O2. Her BP was 103/73 and her O2 was 97%. Pt became short of breath during history taking and her O2 dropped to 86%. Pt was cued to take deep breath and her O2 boogie again to 100%. Pt performed supine to sit with SBA. In sitting her BP became 116/68 and O2 was 93%. Pt performed sit to stand with 2WW and CGA. Pt initiated ambulation. During ambulation , pt began to be short of breath and her O2 was 78%. She was asked to sit back onto the bed and cued to take deep breaths. In sitting pt's O2 dropped to 69% before going back up to 100% over the course of about 1.5 minutes. Pt performed sit to supine with SBA and was positioned back in bed with call light and table in reach and bed alarm on. nursing was notified about the pt's O2 levels as well as chest pain with deep breathing. Gait Assessment Gait Gait Assistance Required: Contact Guard Assist,1 Person Assist Distance (Feet) 30 Able to Maintain Weight Bearing Status Yes During Gait Assistive Devices Assistive Device Gait Belt,Front Wheeled Walker Orthotic/Prosthetic Devices or Brace: No Gait Deviations General Gait Pattern Antalgic,Decreased Stride Length,Decreased Feet Clearance Factors Limiting Gait Function Factors Limiting Gait Function Decreased Activity Tolerance, Decreased Strength,Pain, Respiratory Distress Comments Gait Comments Pt ambulated 30ft within room CGAA with 2WW. During end of ambulation, pt's O2 sats dropped to 78% on supplemental O2 and she began c/o SOB and pain in chest with deep breathing. She was asked to sit down on the bed. In sitting, pt's O2 continued to drop to 69%, but then boogie to 100% over the course of 1.5 minutes. PT-Balance Assessment Sitting Balance and Reactions Static Sitting Balance Ability Good Dynamic Sitting Balance Ability Good Standing Balance and Reactions Static Standing Balance Ability Fair Dynamic Standing Balance Ability Fair Device Used 2WW M5 PT-IP Objective Assessments Start: 04/21/19 13:03 Freq: NEEDED Status: Active Protocol: Document 04/21/19 10:57 MT (Rec: 04/21/19 14:32 MT [email or web address]) Orientation Orientation/Cognition Level of Alertness Alert Orientation Name,Date,Day of Week Language Function Ability No Deficits Noted Safety Awareness Understands Safety Issues Memory Description No Deficits Noted Gross Range of Motion Lower Extremity ROM Assessment Within Functional Limits Strength Lower Extremity Strength Assessment Within Functional Limits Comments Strength Comments general B LE strength of 4/5 M6 PT-IP Treatment Start: 04/21/19 13:03 Freq: NEEDED Status: Active Protocol: Document 04/21/19 10:57 MT (Rec: 04/21/19 14:32 MT [email or web address]) Physical Therapy Treatment Education Education Provided Safety M7 PT-IP Assessment and Plan Start: 04/21/19 13:03 Freq: NEEDED Status: Active Protocol: Document 04/21/19 10:57 MT (Rec: 04/21/19 14:32 MT [email or web address]) PT Summary Assessment and Plan Potential Rehabilitation Potential Fair Status of Condition at Evaluation Evolving Summary Impairments Pain,Strength,Bed Mobility, Transfers,Gait,Activity Tolerance Assessment Summary Pt presents to PT with shortness of breath and decreased activity tolerance. Pt has low activity tolerance and requires cueing for deep breathing when experiencing shortness of breath, as she tends to take shallow breath, especially during movement. During session, pt had drop in O2 to 78% and further activity was discontinued to allow pt to get back up to appropriate level. Due to pt' s decreased activity tolerance and unstable vitals and the fact anoop is not available to take care of her for long hours during the day, pt would benefit from discharge to a SNF until she is more independent with her mobility Goals Bed Mobility Goal Independent Transfer Goal Independent,Front Wheeled Walker Gait Goal Independent,Front Wheel Walker Gait Distance 150 Days to Meet Goals 5 Frequency of Treatment Frequency Of Treatment Once a Day Treatment Plan Physical Therapy Treatment Plan Bed Mobility Training,Transfer Training,Gait Training, Therapeutic Exercise,Discharge Planning Other Recommendations and Next Treatment caregiver training with Focus /daughter if appropriate, follow up with pt about getting a 2WW Recommendations To Nursing Amount of Assist Needed 1 Person Assist Discharge Recommendations PT Discharge Recommendations SNF Rehab
--- NOTE | 2019-04-21 11:09 | CM.DANOTE ---
DCP: Case received, EMR reviewed and met with patient. Introduced self and role. Was able to have a brief conversation with patient and obtain some baseline health and activity information. DCP assessment completed with information currently available. Patient came to the hospital via family vehicle secondary to increased shortness of breath. 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 He had been getting radiation to her lungs, and is now currently on chemo/immunotherapy. She sees Dr. Garnett, oncologist at [facility] in [facility]. He is taking Hakeem off for her chemo, secondary to side effects. Met briefly with patient. She was sitting up in bed, on oxygen. She confirmed that she resides in [place] with her spouse, Ankur. She stated she has been driving, but will probably not drive much longer. She has supportive at home. At this time, patient holds diagnosis of pneumonia. P: DCP to follow closely, and be available for any resources needed. Patient should be able to go home when she is medically stable. At this time, is unclear if patient will need home oxygen. Yumiko Alford RN/Boss Dyer
[2019-04-21] MEDS: fentaNYL 25 MCG/PATCH TOP (15:39)
[2019-04-21] MEDS: LORazepam 0.5 MG TABLET PO (15:47)
--- NOTE | 2019-04-21 16:23 | PM.PN.1 ---
Subjective Subjective Date Patient Seen: 04/21/19 Time Patient Seen: 16:23 Interval history: Ms. Marilu Alcantara is a 53-year-old female with history significant for breast cancer, thyroid cancer, lung cancer status post radiation therapy and anxiety and depression, hypothyroidism, and lower extremity edema on Lasix who is seen for follow-up today of hypoxemic respiratory failure secondary to uncontrolled pain in the setting of her malignancy and a left lower lobe pneumonia. She is slightly improved today but still on supplemental oxygen. Her pain is better today but still not controlled. I have added a fentanyl patch to try and control her pain today. Exam Vital Signs (past 8 hours): - 04/21/19 09:00 04/21/19 11:44 04/21/19 13:00 Temperature 97.8 F 98.6 F Pulse Rate 91 H 88 Respiratory Rate 17 17 Blood Pressure 118/72 106/67 Pulse Oximetry 93 97 98 04/21/19 16:20 Temperature 97.8 F Pulse Rate 78 Respiratory Rate 16 Blood Pressure 122/70 Pulse Oximetry 91 Oxygen Delivery Method Room Air Oxygen Flow Rate 0 Narrative Exam Narrative: GENERAL APPEARANCE: well developed, adequately nourished, moderately ill-appearing female in no acute distress HEENT: Normocephalic, PERRLA, sluggish, sclera anicteric, conjunctiva clear, EOMs intact without nystagmus, no sinus tenderness to percussion, no rhinorrhea, mucous membranes are moist and pink without lesions or exudate. NECK/THYROID: neck supple, no JVD, no carotid bruit, no thyromegaly, trachea midline. LYMPH NODES: no cervical or supraclavicular lymphadenopathy. SKIN: [place], warm and dry, no visible lesions, no rashes, ulcerations or petechiae. HEART: regular rate and rhythm, S1-S2, no murmur, no rubs or gallops, brisk capillary refill, no edema LUNGS: Breath sounds diminished in her bilateral lobe bases, clear to auscultation bilaterally, no coarseness crackles or wheezing, no cough present CHEST: Symmetrical movement, shallow tidal volume, pain on deep inspiration, no accessory muscle use, no pain to AP and lateral compression. ABDOMEN: Soft, no distention, RUQ abdominal tenderness, no guarding or peritoneal signs, no organomegaly, right flank tenderness, active bowel tones. EXTREMITIES: moves all extremities, strength is 5/5 and symmetrical, no deformities or joint effusions. There is trace lower extremity edema. NEUROLOGIC: AAO x4, no focal neurologic deficits, cranial nerves II-XII grossly intact, sensation intact to light touch, hearing grossly normal to speech. PSYCH: Fair to poor eye contact, patient appears depressed, cooperative, appropriate with stable behavior Objective Labs Result Diagrams: 04/21/19 05:23 04/21/19 05:23 Labs: Laboratory Results - last 24 hr 04/20/19 04/20/19 04/20/19 15:15 15:15 15:15 WBC RBC Hgb Hct MCV MCH MCHC RDW Plt Count Neut % (Auto) Lymph % (Auto) [place] % (Auto) Eos % (Auto) Baso % (Auto) Neut # (Auto) Lymph # (Auto) [place] # (Auto) Eos # (Auto) Baso # (Auto) Sodium Potassium Chloride Carbon Dioxide BUN Creatinine Estimated GFR BUN/Creatinine Ratio Glucose Calcium Magnesium 1.9 Lipase 23 Procalcitonin < 0.05 Urine Color Urine Appearance Urine pH Ur Specific [place] Urine Protein Urine Glucose (UA) Urine Ketones Urine Occult Blood Urine Nitrate Urine Bilirubin Urine Urobilinogen Ur Leukocyte Esterase Urine RBC Urine WBC Ur Squamous Epith Cells Urine Bacteria Ur Culture Indicated? 04/20/19 04/21/19 04/21/19 20:45 05:23 05:23 WBC 3.7 L RBC 2.98 L Hgb 8.9 L Hct 24.9 L MCV 83.4 MCH 29.9 MCHC 35.8 RDW 14.7 Plt Count 344 Neut % (Auto) 73.0 Lymph % (Auto) 13.3 L [place] % (Auto) 12.5 Eos % (Auto) 0.8 L Baso % (Auto) 0.4 Neut # (Auto) 2700 Lymph # (Auto) 500 L [place] # (Auto) 500 Eos # (Auto) 0 Baso # (Auto) 0 Sodium 137 Potassium 3.9 Chloride 98 Carbon Dioxide 31 BUN 10 Creatinine 0.50 L Estimated GFR > 60.0 BUN/Creatinine Ratio 20.0 Glucose 109 H Calcium 9.1 Magnesium Lipase Procalcitonin Urine Color Yellow Urine Appearance Clear Urine pH 6.5 Ur Specific [place] <=1.005 Urine Protein Negative Urine Glucose (UA) Negative Urine Ketones Negative Urine Occult Blood Trace-intact Urine Nitrate Negative Urine Bilirubin Negative Urine Urobilinogen 0.2 Ur Leukocyte Esterase Negative Urine RBC 0-1/hpf Urine WBC 0-1/hpf Ur Squamous Epith Cells 0-1 /hpf Urine Bacteria None seen Ur Culture Indicated? Cult not indicated 04/21/19 05:23 WBC RBC Hgb Hct MCV MCH MCHC RDW Plt Count Neut % (Auto) Lymph % (Auto) [place] % (Auto) Eos % (Auto) Baso % (Auto) Neut # (Auto) Lymph # (Auto) [place] # (Auto) Eos # (Auto) Baso # (Auto) Sodium Potassium Chloride Carbon Dioxide BUN Creatinine Estimated GFR BUN/Creatinine Ratio Glucose Calcium Magnesium Lipase Procalcitonin < 0.05 Urine Color Urine Appearance Urine pH Ur Specific [place] Urine Protein Urine Glucose (UA) Urine Ketones Urine Occult Blood Urine Nitrate Urine Bilirubin Urine Urobilinogen Ur Leukocyte Esterase Urine RBC Urine WBC Ur Squamous Epith Cells Urine Bacteria Ur Culture Indicated? Assessment & Plan Assessment & Plan narrative: This is a 53-year-old female patient with breast thyroid and lung cancer who has undergone radiation therapy and is currently undergoing chemotherapy (held this month for the holidays) admitted for acute hypoxemic respiratory failure secondary to pneumonia and uncontrolled pain in the setting of known metastatic cancer. 1. A acute hypoxic respiratory failure, present on admission, active but improving. -upon arrival to the ER the patient was tachypneic respiratory rate 32, room air saturation of 87% for up P/F ratio of 252. -patient responded well to oxygen therapy with saturating increasing 97% however patient continued have shallow tidal volume related to chest pain. -patient with findings of bibasilar opacities on chest x-ray and left lower lobe retrocardiac pneumonia on imaging. -respiratory therapy to consult, supplemental oxygen as needed pain oxygen saturation greater than 92%. -ceftriaxone 2 g IV daily, add azithromycin PO for this patient. Qtc unremarkable. -obtain respiratory panel. -patient has home medication of albuterol inhaler, ordered albuterol nebulizer every 2 hours as needed. -will work to manage pain and improve ventilation. 2. Chest pain, acute on chronic, present on admission, active. -patient sources history of left chest pain that has been longstanding. Developed right-sided chest pain last night that progressed rapidly today escalating to 7-8/10 pain level. -positive D-dimer at 685, CT angio is negative for pulmonary embolism. -patient has retroesophageal mass and pneumonia both potential etiology of increasing pleuritic pain. -patient has been using her oxycodone 30 mg every 8 hours and has oxycodone 5 mg every 4 hours which was insufficient to control her pain. -in the ER the patient received Valium 2 mg as well as 4 mg of morphine with improved pain control as evidence by decreased respiratory rate and improved oxygenation. -will continue oxy Contin 30 mg every 8 hours and oxycodone 5 mg every 4 hours for moderate pain and morphine 4 mg IV every 4 hours as needed for breakthrough severe pain. Today I have started a fentanyl patch to help control her increased pain needs from her metastatic malignancy. 3. Left lower lobe pneumonia, acute, present on admission, active. -patient is on chemotherapy with impaired immune response. afebrile initial procalcitonin is negative at less than 0.05. -chest x-ray with findings bibasilar opacities and CT scan finding of retrocardiac left lower lobe pneumonia. -patient started on ceftriaxone 2 g daily, added azithromycin today -obtain respiratory panel 4. Metastatic Lung cancer, chronic, present on admission, active. -prior smoker with 35 pack year history, history of thyroid cancer as well as breast cancer. -CT scan in November of 2018 notes right hilar mass with erosion into adjacent osseous structures. 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 -patient follows with Dr. Garnett oncology. -will continue patient's home regimen of Reglan 5 mg 4 times daily and Zofran 8 mg every 8 hours for management of nausea. -patient takes Lasix 20 mg daily for post chemotherapeutic edema, patient can continue a she now has some lower extremity edema. 5. Right upper quadrant abdominal pain, present on admission, active. -unclear etiology but may be related to adrenal mass and retroperitoneal space with tenderness along the right posterior flank. Procalcitonin is negative. -abdominal ultrasound identifies cholelithiasis but no cholecystitis or ductal dilatation. No evidence of liver involvement with normal bilirubin AST and ALT. No other pathology identified on exam. -will manage pain, monitor CBC and chemistries. 6. Constipation, chronic, present on admission, active -patient's laxative dependent for management of bowel function on high-dose opiates. -patient reports using Fleet's enemas daily. She has used MiraLax and other stool softeners and laxatives previously with incomplete success. -docusate 100 mg twice daily, Doculax per rectum as needed or Fleet enema daily as needed for constipation. 7. Depression with anxiety, chronic, present on admission, active -will continue patient's home regimen of fluoxetine 20 mg daily. -will continue home regimen of lorazepam 0.5 mg 3 times daily as needed which will also augment pain management. 8. Hypothyroidism, acquired, present on admission, stable -patient with history of thyroidectomy for thyroid cancer. -patient is on alternating doses of levothyroxine 150 mcg every other day alternating with 175 mcg every other day. VTE prophylaxis: SCDs and heparin b.i.d. Diet: Heart healthy The patient is admitted to the hospital for intractable pain and acute hypoxic respiratory failure and related risks of adverse events or complications. The patient is admitted as inpatient with expected length of stay to be greater than 2 midnights. Quality VTE Deep Vein Thrombosis/Pulmonary Embolism Present on Admission: No
[2019-04-21] MEDS: AZITHROMYCIN 250 MG TABLET 500 MG PO (17:15)
--- NOTE | 2019-04-21 19:15 | PC.NURSE ---
Addendum entered by Rosy Brantley R.N. 04/21/19 23:33: Tearful and c/o breathlessness after getting up to bedside commode. Staff reassure pt and 02 increased to 3L/min per NC with head of bed elevated. Pt calms and 02 sats checked for 99%. Reports pain level, okay. Taking oral fluids and snack foods without difficulty. No longer tearful and breathing easier. Original Note: Pt tearful @ beginning of shift. Reports pain is well managed left thoracic region and denies pain RUQ and back which brought pt initially into hospital. Reports cancer diagnosis sucks. Allowed pt to verbalize. Pt's spouse is present and attentive to pt. Offered pt lorazepam which pt reports was very effective last evening to treat anxiety and tearfulness. This was given. Nasal swab for flu as ordered completed. Pt on 02 and requests break from continuous monitoring and this was respected. Declines to wear scd's. Head of bed elevated for pt's comfort and pt's preference. Fentanyl patch placed to right anterior chest. Declines offer for enema.
[2019-04-21 19:38] LABS: Adenovirus Not Detected (Not Detect); Bordetella pertussis Not Detected (Not Detect); Chlamydophila pneumoniae Not Detected (Not Detect); Coronavirus 229E Not Detected (Not Detect); Coronavirus HKU1 Not Detected (Not Detect); Coronavirus NL 63 Not Detected (Not Detect); Coronavirus OC43 Not Detected (Not Detect); Human Metapneumovirus Not Detected (Not Detect); Human Rhinovirus/Enterovirus Not Detected (Not Detect); Influenza A Not Detected (Not Detect); Influenza B Not Detected (Not Detect); Mycoplasma pneumoniae Not Detected (Not Detect); Parainfluenza Virus 1 Not Detected (Not Detect); Parainfluenza Virus 2 Not Detected (Not Detect); Parainfluenza Virus 3 Not Detected (Not Detect); Parainfluenza Virus 4 Not Detected (Not Detect); Respiratory Syncytial Virus Not Detected (Not Detect)
[2019-04-21] MEDS: LEVOTHYROXINE 150 MCG TABLET PO (21:10)
[2019-04-22] VITALS: BP 110/70; PULSE 90; RESP 16; TEMP 36.4; O2SAT 94
[2019-04-22] MEDS: CEFTRIAXONE 2 GM/50 ML FROZ.PIGGY IV (02:56)
[2019-04-22] MEDS: OXYCODONE ER 10 MG TAB 30 MG PO ×2 (04:27→12:31)
[2019-04-22] MEDS: ACETAMINOPHEN 325 MG TABLET 975 MG PO ×2 (04:27→12:28)
[2019-04-22 06:00] VITALS: BP 114/73; PULSE 83; RESP 16; TEMP 36.6; O2SAT 98
[2019-04-22 06:23] LABS: Add Manual Diff / Slide Review NO; Basophils Absolute Auto 0 /uL (0-100); Basophils Percent Auto 0.1 % (0-2); Eosinophils Absolute Auto 0 /uL (0-450); Eosinophils Percent Auto 0.6 % (2-4); Hematocrit 24.8 % (36-46); Hemoglobin 8.5 g/dL (12.0-16.0); Lymphocytes Absolute Auto 500 /uL (1100-4500); Lymphocytes Percent Auto 10.4 % (25-40); Mean Corpuscular HGB Conc 34.5 % (30-36); Mean Corpuscular Volume 84.2 fL (80-100); Monocytes Absolute Auto 600 /uL (0-900); Monocytes Percent Auto 12.5 % (3-14); Neutrophils Absolute Auto 3500 /uL (1500-7000); Neutrophils Percent Auto 76.4 % (50-75); Platelet Count 361 X10^3/uL (150-400); Red Blood Cell Count 2.94 X10^6/uL (4.0-5.2); Red Cell Distribution Width 14.9 % (11.6-14.8); White Blood Cell Count 4.5 X10^3/uL (4.5-11.0)
--- NOTE | 2019-04-22 06:25 | PC.NURSE ---
Spoke to MICROBIOLOGICAL LABORATORY TECHNICIAN about heparin flush for patient's port, ordered per protocol via telephone read-back.
[2019-04-22 06:40] LABS: Blood Urea Nitrogen 11 mg/dL (7-17); Calcium 9.2 mg/dL (8.4-10.2); Carbon Dioxide 30 mmol/L (22-32); Chloride 99 mmol/L (98-107); Estimated Glomerular Filt Rate > 60.0 mL/min (>60); Glucose 107 mg/dL (70-100); HEMOLYSIS < 15 (0-50); Sodium 137 mmol/L (137-145)
[2019-04-22 07:13] VITALS: O2SAT 98
[2019-04-22 09:40] VITALS: BP 121/73; PULSE 77; RESP 17; TEMP 36.8; O2SAT 96
[2019-04-22] MEDS: FUROSEMIDE 20 MG TABLET PO (09:43)
[2019-04-22] MEDS: OXYCODONE IR 10 MG TABLET PO (09:43)
[2019-04-22] MEDS: HEPARIN 5,000 UNIT/ML VIAL 5000 UNIT SUBCUT (09:43)
[2019-04-22] MEDS: METOCLOPRAMIDE HCL 10 MG TABLET 5 MG PO ×2 (09:44→12:28)
[2019-04-22] MEDS: DOCUSATE 100 MG CAPSULE PO (09:44)
[2019-04-22] MEDS: FLUoxetine 20 MG CAPSULE 40 MG PO (09:44)
[2019-04-22] MEDS: AZITHROMYCIN 250 MG TABLET PO (09:45)
--- NOTE | 2019-04-22 10:35 | PM.DS.1 ---
History of Present Illness History of Present Illness Date Patient Seen: 04/22/19 Time Patient Seen: 09:00 Chief complaint: hard time breathing Narrative: As per GLADYS Smiley: Ms. Marilu Alcantara is a 53-year-old female with history significant for breast cancer, thyroid cancer, lung cancer status post radiation therapy and anxiety and depression who presents to the ER with shortness of breath. The patient reports having shortness breath that has been progressive over the last week to week and. She has had pre-existing left-sided chest pain but had a new onset rapidly progressing right-sided chest pain onset last night. She describes the pain as pleuritic increasing with deep inspiration. Upon arrival to the ER the patient describes the pain as a 7-8/10 and on control with her home pain medication regimen. The patient has had associated nausea vomiting a couple of days ago none currently. She does describe episodic edema with chemotherapeutic treatments. Patient denies having fevers but has frequent chills. She denies nasal congestion or sore throat. She had chest pain as above but denies palpitations. He has had progressive dyspnea on exertion but denies cough. She has no complaints of abdominal pain and denies urinary symptoms. She uses Fleet enemas routinely for stooling. Upon arrival to the ER patient is tachycardic at rate 110 with a blood pressure of 122/73. She is tachypneic at 32 with room air saturation of 87% improving to 97% on 2 L/M nasal cannula. Chest x-ray obtained which finds bibasilar opacities with small effusion left greater than right. Patient was found have an elevated D-dimer at 685 and therefore underwent CTA which was negative for pulmonary embolism, identified bilateral large adrenal masses described as possible metastatic lesions, retrocardiac left lower lobe pneumonia versus aspiration, possible midesophageal mass measuring 2.6 x 3.1 cm. The radiologist interpretation makes note in regard to comparison with CT exam of 12/04/2018 or right hilar mass with osseous erosion. Patient also underwent abdominal ultrasound due to abdominal discomfort finding presence of gallstones negative Wilson sign with no leonel cholestatic fluid and no ductal dilation and normal spleen and pancreas. On laboratory analysis the patient has white blood cell count of 5.3, hemoglobin of 10.0 and hematocrit of 29.8 platelets of 448. Her electrolytes are limits with a BUN of 16 and creatinine of 0 6. Nonfasting glucose is 119. Liver functions she has a total bili of 0 5, AST of 27, ALT 25 and alkaline phosphatase of 132. Troponin and CK are both negative. EKG is obtained finding sinus rhythm with a ventricular rate of [address] or T-wave changes. Patient is admitted to the Medicine service for intractable pain in the setting of metastatic cancer. Discharge Providers Provider Date of admission: 04/20/19 19:57 Discharge Date: 04/22/19 Primary care physician: Robert Sommer DO Consults: 04/20/19 20:22 Consult to Discharge Planning Routine Comment: Consult to Physical Therapy Evaluate & Treat Comment: Chest pain, history lung cancer, impaired mobility Physician Instructions: Evaluate and Treat 04/21/19 02:22 Consult to Respiratory Therapy Evaluate & Treat Comment: Hypoxic respiratory failure, on oxygen Physician Instructions: Evaluate and treat Discharge provider: Alan Urbina DO Summary Hospital Course Discharge Diagnosis: 1. Acute hypoxic respiratory failure, present on admission, improving. 2. Chest pain, acute on chronic, present on admission, active. 3. Left lower lobe pneumonia, acute, present on admission, active. 4. Metastatic Lung cancer, chronic, present on admission, active. 5. Right upper quadrant abdominal pain, present on admission, active. 6. Constipation, chronic, present on admission, active 7. Depression with anxiety, chronic, present on admission, active 8. Hypothyroidism, acquired, present on admission, stable Hospital Course: This is a 53-year-old female patient with breast thyroid and lung cancer who has undergone radiation therapy and is currently undergoing chemotherapy (held this month for the holidays) admitted for acute hypoxemic respiratory failure secondary to pneumonia and uncontrolled pain in the setting of known metastatic cancer. She improved with antibiotics and pain was improved with initiation of a fentanyl patch. 1. Acute hypoxic respiratory failure, present on admission, improving. -upon arrival to the ER the patient was tachypneic respiratory rate 32, room air saturation of 87% for up P/F ratio of 252. -patient responded well to oxygen therapy with saturating increasing 97% however patient continued have shallow tidal volume related to chest pain. -patient with findings of bibasilar opacities on chest x-ray and left lower lobe retrocardiac pneumonia on imaging. -patient was started on antibiotics and was discharged to complete 7 day course with augmentin. -patient has home medication of albuterol inhaler, ordered albuterol nebulizer every 2 hours as needed. -patient improved with treatment of pain as well as antibiotics. She still required supplemental oxygen for activity. She was discharged home on home O2. 2. Chest pain, acute on chronic, present on admission, active. -patient sources history of left chest pain that has been longstanding. Developed right-sided chest pain last night that progressed rapidly today escalating to 7-8/10 pain level. -positive D-dimer at 685, CT angio is negative for pulmonary embolism. -patient has retroesophageal mass and pneumonia both potential etiology of increasing pleuritic pain. -patient has been using her oxycodone 30 mg every 8 hours and has oxycodone 5 mg every 4 hours which was insufficient to control her pain. -patient was started on fentanyl patch, which helped to control her symptoms along with her previous home regimen. 3. Left lower lobe pneumonia, acute, present on admission, active. -patient is on chemotherapy with impaired immune response. afebrile initial procalcitonin is negative at less than 0.05. -chest x-ray with findings bibasilar opacities and CT scan finding of retrocardiac left lower lobe pneumonia. -patient started on ceftriaxone 2 g daily, added azithromycin, discharged on augmentin. 4. Metastatic Lung cancer, chronic, present on admission, active. -prior smoker with 35 pack year history, history of thyroid cancer as well as breast cancer. -CT scan in November of 2018 notes right hilar mass with erosion into adjacent osseous structures. 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 -patient follows with Dr. Garnett oncology. -will continue patient's home regimen of Reglan 5 mg 4 times daily and Zofran 8 mg every 8 hours for management of nausea. -patient takes Lasix 20 mg daily for post chemotherapeutic edema, patient can continue as she now has some lower extremity edema. 5. Right upper quadrant abdominal pain, present on admission, active. -unclear etiology but may be related to adrenal mass and retroperitoneal space with tenderness along the right posterior flank. Procalcitonin is negative. -abdominal ultrasound identifies cholelithiasis but no cholecystitis or ductal dilatation. No evidence of liver involvement with normal bilirubin AST and ALT. No other pathology identified on exam. 6. Constipation, chronic, present on admission, active -patient's laxative dependent for management of bowel function on high-dose opiates. -patient reports using Fleet's enemas daily. She has used MiraLax and other stool softeners and laxatives previously with incomplete success. -docusate 100 mg twice daily, Doculax per rectum as needed or Fleet enema daily as needed for constipation. 7. Depression with anxiety, chronic, present on admission, active -will continue patient's home regimen of fluoxetine 20 mg daily. -will continue home regimen of lorazepam 0.5 mg 3 times daily as needed which will also augment pain management. 8. Hypothyroidism, acquired, present on admission, stable -patient with history of thyroidectomy for thyroid cancer. -patient is on alternating doses of levothyroxine 150 mcg every other day alternating with 175 mcg every other day. Time Spent with Patient Time spent: Greater than 30 minutes Exam Vital Signs (past 8 hours): - 04/22/19 06:00 04/22/19 07:13 04/22/19 09:40 Temperature 97.9 F 98.2 F Pulse Rate 83 77 Respiratory Rate 16 17 Blood Pressure 114/73 121/73 Pulse Oximetry 98 98 96 Oxygen Delivery Method Nasal Cannula Oxygen Flow Rate 0 Narrative Exam Narrative: GENERAL APPEARANCE: well developed, adequately nourished, moderately ill-appearing female in no acute distress HEENT: Normocephalic, PERRLA, sluggish, sclera anicteric, conjunctiva clear, EOMs intact without nystagmus, no sinus tenderness to percussion, no rhinorrhea, mucous membranes are moist and pink without lesions or exudate. NECK/THYROID: neck supple, no JVD, no carotid bruit, no thyromegaly, trachea midline. LYMPH NODES: no cervical or supraclavicular lymphadenopathy. SKIN: [place], warm and dry, no visible lesions, no rashes, ulcerations or petechiae. HEART: regular rate and rhythm, S1-S2, no murmur, no rubs or gallops, brisk capillary refill, no edema LUNGS: Breath sounds diminished in her bilateral lobe bases, clear to auscultation bilaterally, no coarseness crackles or wheezing, no cough present CHEST: Symmetrical movement, shallow tidal volume, pain on deep inspiration, no accessory muscle use, no pain to AP and lateral compression. ABDOMEN: Soft, no distention, RUQ abdominal tenderness, no guarding or peritoneal signs, no organomegaly, right flank tenderness, active bowel tones. EXTREMITIES: moves all extremities, strength is 5/5 and symmetrical, no deformities or joint effusions. There is trace lower extremity edema. NEUROLOGIC: AAO x4, no focal neurologic deficits, cranial nerves II-XII grossly intact, sensation intact to light touch, hearing grossly normal to speech. PSYCH: Fair to poor eye contact, patient appears depressed, cooperative, appropriate with stable behavior Objective Labs Result Diagrams: 04/22/19 06:15 04/22/19 06:15 Labs: Laboratory Results - last 24 hr 04/21/19 04/22/19 04/22/19 18:06 06:15 06:15 WBC 4.5 RBC 2.94 L Hgb 8.5 L Hct 24.8 L MCV 84.2 MCH 29.0 MCHC 34.5 RDW 14.9 H Plt Count 361 Neut % (Auto) 76.4 H Lymph % (Auto) 10.4 L [place] % (Auto) 12.5 Eos % (Auto) 0.6 L Baso % (Auto) 0.1 Neut # (Auto) 3500 Lymph # (Auto) 500 L [place] # (Auto) 600 Eos # (Auto) 0 Baso # (Auto) 0 Sodium 137 Potassium 4.0 Chloride 99 Carbon Dioxide 30 BUN 11 Creatinine 0.50 L Estimated GFR > 60.0 BUN/Creatinine Ratio 22.0 Glucose 107 H Calcium 9.2 Chlamy pneumoniae PCR Not detected Adenovirus (PCR) Not detected B.parapertussis DNA PCR Not detected Coronavirus OC43 (PCR) Not detected Coronavirus HKU1 (PCR) Not detected Coronavirus 229E (PCR) Not detected Coronavirus NL63 (PCR) Not detected Human Metapneumovir PCR Not detected Influenza Type A (PCR) Not detected Influenza Type B (PCR) Not detected M. pneumoniae (PCR) Not detected Parainfluenza 1 (PCR) Not detected Parainfluenza 2 (PCR) Not detected Parainfluenza 3 (PCR) Not detected Parainfluenza 4 (PCR) Not detected RSV (PCR) Not detected Entero/Rhino (PCR) Not detected Discharge Plan Discharge Plan Patient Disposition: Home Discharge comment: You were admitted to the hospital with uncontrolled pain. Your CT scan of your chest showed an esophageal mass. You were also found to have a pneumonia in your left lower lobe. You required supplemental oxygen when ambulatory. Please follow up with your oncologist and palliative care providers for further titration of your pain medications and cancer treatment. Discharge orders & Medications Prescriptions: New amitriptyline 25 mg Tablet 25 mg PO BEDTIME 30 Days Qty: 30 RF: 0 fentanyl 25 mcg/hr Patch 72 Hour 25 mcg topical Q72H 14 Days Qty: 5 RF: 0 amoxicillin-pot clavulanate [Augmentin] 875-125 mg tablet 1 tab PO BID 5 Days Qty: 10 RF: 0 Continued levothyroxine [Synthroid] 150 MCG tablet 150 mcg PO EVERY OTHER DAY Qty: 0 RF: 0 levothyroxine [Synthroid] 175 MCG tablet 0.175 mg EVERY OTHER DAY Qty: 0 RF: 0 fluoxetine 20 mg capsule 20 mg PO DAILY RF: 0 potassium chloride 10 mEq tablet extended release 10 meq PO DAILY RF: 0 metoclopramide HCl 5 mg tablet 5 mg PO QID RF: 0 furosemide 20 mg tablet 20 mg PO DAILY RF: 0 oxycodone 5 mg tablet 5 mg PO Q4H PRN (Reason: pain) RF: 0 oxycodone [OxyContin] 30 mg tablet,oral only,ext.rel.12 hr 30 mg PO Q8H RF: 0 ondansetron HCl 8 mg tablet 8 mg PO Q8H PRN (Reason: nausea from chemotherapy) RF: 0 lorazepam 0.5 mg tablet 0.5 mg PO TID PRN (Reason: Anxiety) RF: 0 scopolamine base 1 mg over 3 days patch 3 day 1 patch topical Q3D RF: 0 albuterol sulfate [ProAir HFA] 90 mcg/actuation HFA aerosol inhaler 2 puff inhalation Q4H PRN (Reason: Wheezing) RF: 0 Follow up/Referrals: Robert Sommer DO [Primary Care Provider] - Diet/Activity/Treatments Diet: Diet as Tolerated Activity: No restrictions Oxygen: As needed for activity to maintain 88-90%. Visit Report/Discharge Packet Instructions: DI for Gallstones, Fentanyl Transdermal Patch, Amitriptyline (By mouth), Amoxicillin/Clavulanate Potassium (By mouth) Discharge Data Primary Care Provider: Robert Sommer Discharges patient from system. Discharge Date/Time: 04/22/19 13:12 Quality VTE Deep Vein Thrombosis/Pulmonary Embolism Present on Admission: No
--- NOTE | 2019-04-22 10:37 | PM.EVENT ---
Event Note Date Patient Seen: 04/22/19 Time Patient Seen: 09:00 Event Note: Patient has acute on chronic hypoxemic respiratory failure from pneumonia and her known lung cancer, as well as an esophageal mass which is likely contributing to her shortness of breath. She requires supplemental oxygenation, desaturating below 88% on room air with activity.
--- NOTE | 2019-04-22 13:09 | PC.NURSE ---
Pt is dressed and ready for discharge home with Spouse. O2 tank has been delivered to Pt's room to take home and Grecia will be meeting them at their house shortly. PC deaccessed. Went over d/c instructions with Pt-discussed d/c meds, time of last dose, reviewed when to change Fentanyl patch, and O2 use. Pt denies further questions and will follow up as scheduled with Palliative Care. Pt out via w/c by RN with Spouse and all belongings.
--- NOTE | 2019-04-22 15:15 | CM.DPC ---
DCP: continued: case received, EMR reviewed. Note that hospitalist Dr. Urbina did deem pt stable for d/c to home setting and she left with her spouse at 1300.
== END 2019-04-22 13:12 | disposition home or self-care (01) | DRG 193 ==
LOC: ED 18:52 → AC 04-21 07:39
PROVIDERS: Nurse Practitioner Adult Health; Admitting Provider Internal Medicine; Emergency Provider Emergency Medicine; PCP Family Medicine; Visit Provider Internal Medicine
DX: J18.9 Pneumonia, unspecified organism (principal); J96.01 Acute respiratory failure with hypoxia; C34.01 Malignant neoplasm of right main bronchus; C78.89 Secondary malignant neoplasm of other digestive organs; R07.9 Chest pain, unspecified; Z85.3 Personal history of malignant neoplasm of breast; Z85.850 Personal history of malignant neoplasm of thyroid; Z87.891 Personal history of nicotine dependence; F41.8 Other specified anxiety disorders; E03.9 Hypothyroidism, unspecified; K59.09 Other constipation
CPT/HCPCS: 36415; 36591; 71045; 71275; 76700; 80048; 80053; 81001; 81003; 82550; 83690; 83735; 84145; 84484; 85025; 85379; 87633; 93005; 93010; 93041; 94618; 94640; 94760; 94762; 96361; 96374; 96375; 97162; 99284; 99285; J0696; J1642; J1644; J2270; J2405; J3360; Q9967

== ENCOUNTER 2019-05-04 21:02 | Observation (INO) | payer OTHER, SELFPAY ==
[2019-04-20 20:18] VITALS: BMI 26.6
[2019-05-04 21:12] VITALS: BP 157/92; PULSE 102; RESP 22; O2SAT 100
[2019-05-04 21:17] VITALS: TEMP 36.8
[2019-05-04] MEDS: PROCHLORPERAZINE 10 MG/2 ML VIAL IV (21:44)
[2019-05-04] MEDS: HYDROMORPHONE 1 MG INJ IV ×2 (21:44→23:55)
[2019-05-04 22:02] LABS: Add Manual Diff / Slide Review NO; Basophils Absolute Auto 0 /uL (0-100); Basophils Percent Auto 0.3 % (0-2); Eosinophils Absolute Auto 0 /uL (0-450); Eosinophils Percent Auto 0.2 % (2-4); Hematocrit 28.3 % (36-46); Hemoglobin 9.4 g/dL (12.0-16.0); Lymphocytes Absolute Auto 600 /uL (1100-4500); Lymphocytes Percent Auto 5.6 % (25-40); Mean Corpuscular HGB Conc 33.1 % (30-36); Mean Corpuscular Hemoglobin 27.6 PG (26-34); Mean Corpuscular Volume 83.2 fL (80-100); Monocytes Absolute Auto 800 /uL (0-900); Monocytes Percent Auto 8.6 % (3-14); Neutrophils Absolute Auto 8500 /uL (1500-7000); Neutrophils Percent Auto 85.3 % (50-75); Platelet Count 355 X10^3/uL (150-400); Red Cell Distribution Width 14.8 % (11.6-14.8); White Blood Cell Count 9.9 X10^3/uL (4.5-11.0)
[2019-05-04 22:11] LABS: BUN Creatinine Ratio 21.7 (6-22); Blood Urea Nitrogen 13 mg/dL (7-17); Calcium 9.4 mg/dL (8.4-10.2); Carbon Dioxide 30 mmol/L (22-32); Chloride 93 mmol/L (98-107); Estimated Glomerular Filt Rate > 60.0 mL/min (>60); Glucose 115 mg/dL (70-100); HEMOLYSIS < 15 (0-50); Sodium 133 mmol/L (137-145)
--- NOTE | 2019-05-04 22:20 | DI.RAD.S_ITS ---
PROCEDURE: XR CHEST 1V INDICATIONS: chest cough, recent pneumonia TECHNIQUE: One view of the chest was acquired. COMPARISON: [facility], CR, XR CHEST 1V, 04/20/2019, 15:13. FINDINGS: Surgical changes and devices: Left-sided tunneled port device is unchanged in positioning. Surgical clips in the lower left neck, unchanged. Surgical clips are noted in the lower left chest/breast. Lungs and pleura: The there is a small left pleural effusion. Streaky bibasilar opacities more pronounced on the left with increased left basilar consolidation compatible with recent history of pneumonia. No pneumothorax. No right-sided pleural effusion. Mediastinum: The cardiomediastinal contours remain stable. Heart size is normal. Bones and chest wall: No suspicious bony lesions. Overlying soft tissues appear unremarkable. IMPRESSION: Persistent patchy bibasilar opacities more pronounced on the left with increased focal consolidation involving the left lung base likely representing pneumonia/focal airspace disease. Recommend follow up chest radiograph 4-6 weeks after treatment to document resolution of findings and/or return to baseline examination. Dictated by: Roly Chavis M.D. on 05/05/2019 at 7:23 Approved by: Roly Chavis M.D. on 05/05/2019 at 7:34
--- NOTE | 2019-05-04 22:20 | ED.NAVMDI ---
HPI - Nausea/Vomiting/Diarrhea General Chief complaint: Nausea/Vomiting/Diarrhea Stated complaint: Lung cancer patient, pain out of control Time Seen by Provider: 05/04/19 21:09 Source: patient and family Mode of arrival: Ambulatory Limitations: no limitations History of Present Illness HPI Narrative: 53-year-old female former smoker in the process of transitioning from palliative care to hospice due to breast cancer, lung cancer, esophageal cancer. Her last palliative chemotherapy was 1 month ago. She was recently admitted for intractable chest pain. Since that hospitalization palate of care has altered her regimen slightly but the patient presents tonight because her pain is being poorly controlled and she has persistent vomiting at home.Deep breaths and movement worsen her pain. She has had no fever or chills MD complaint: nausea and vomiting Onset (ago): hour(s) Description of Vomiting: food contents Description of Diarrhea: none Associated Abdominal Pain: No Severity: moderate Associated symptoms: denies other symptoms Related Data Home Medications Medication Instructions Recorded Confirmed levothyroxine [Synthroid] 150 mcg PO EVERY OTHER DAY #0 07/16/07 04/20/19 levothyroxine [Synthroid] 0.175 mg EVERY OTHER DAY #0 03/13/17 04/20/19 fluoxetine 20 mg capsule 20 mg PO DAILY 06/23/18 04/20/19 albuterol sulfate [ProAir HFA] 2 puff INHALATION Q4H PRN 04/20/19 04/20/19 furosemide 20 mg PO DAILY 04/20/19 04/20/19 lorazepam 0.5 mg PO TID PRN 04/20/19 04/20/19 metoclopramide HCl 5 mg PO QID 04/20/19 04/20/19 ondansetron HCl 8 mg PO Q8H PRN 04/20/19 04/20/19 oxycodone 5 mg PO Q4H PRN 04/20/19 04/20/19 oxycodone [OxyContin] 30 mg PO Q8H 04/20/19 04/20/19 potassium chloride 10 meq PO DAILY 04/20/19 04/20/19 scopolamine base 1 patch TOPICAL Q3D 04/20/19 04/20/19 Previous Rx's Medication Instructions Recorded amitriptyline 25 mg PO BEDTIME 30 Days #30 tab 04/22/19 amoxicillin-pot clavulanate 1 tab PO BID 5 Days #10 tab 04/22/19 [Augmentin] fentanyl 25 mcg TOPICAL Q72H 14 Days #5 each 04/22/19 Allergies Allergy/AdvReac Type Severity Reaction Status Date / Time Sulfa (Sulfonamide Allergy Unknown Verified 02/27/19 12:31 Antibiotics) [SULFA (SULFONAMIDE ANTIBIOTICS)] Review of Systems Constitutional Constitutional: Denies chills, Denies fatigue, Denies fever(s), Denies frequent falls, Denies lethargy and Denies weakness Eyes Eyes: Denies change in vision, Denies eye discharge, Denies irritation and Denies loss of vision ENT Ears, Nose, Mouth, and Throat: Denies change in voice, Denies dizziness, Denies neck pain, Denies sore throat and Denies throat swelling Cardiovascular Cardiovascular: Reports chest pain, Denies irregular heart rhythm, Denies lightheadedness, Denies palpitations, Denies dyspnea, Denies dyspnea on exertion and Denies orthopnea Respiratory Respiratory: Denies cough, Denies dyspnea, Denies dyspnea on exertion and Denies wheezing Gastrointestinal Gastrointestinal: Denies abdominal pain, Denies change in bowel habits, Denies diarrhea, Reports nausea and Reports vomiting Genitourinary Genitourinary: Denies hematuria, Denies flank pain, Denies urinary incontinence and Denies urinary urgency Musculoskeletal Musculoskeletal: Denies back pain, Denies muscle weakness, Denies neck pain, Denies numbness and Denies tingling Integumentary/Breasts Skin/Breast: Denies pruritus, Denies erythema, Denies rash and Denies wounds Neurologic Neurologic: Denies behavioral changes, Denies confusion, Denies dizziness, Denies frequent falls, Denies loss of vision, Denies numbness, Denies tingling and Denies weakness Psychiatric Psychiatric: Denies anxiety, Denies behavioral changes, Denies confusion, Denies depression, Denies homicidal ideation and Denies suicidal ideation Endocrine Endocrine: Denies fatigue, Denies flushing and Denies palpitations Hematologic/Lymphatic Hematologic/Lymphatic: Denies easy bruising Allergic/Immunologic Allergic/Immunologic: Denies urticaria, Denies throat swelling and Denies wheezing 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) History of radiation therapy (Acute) Lung cancer (Inactive) Thyroid cancer (Acute) Tobacco abuse (Acute) Surgical History History of section (Acute) History of hysterectomy (Acute) History of vascular access device (Acute) Status post breast lumpectomy (Acute) Status post complete thyroidectomy (Acute) Family History Mother Breast cancer Father Cancer Social History marital status: household members: spouse occupational status: employed Smoking Status: Former smoker alcohol intake: former substance use type: does not use Smoking Status: Former smoker alcohol intake frequency: a few times a month Substance Use Type: does not use Exam Narrative Exam Narrative: GENERAL: 53] year old patient appears stated age. Well-nourished, well-developed patient, in significant distress, obviously in pain, splinting her anterior chest wall HEAD: Atraumatic. Normocephalic. EYES: Pupils equal round and reactive. Extraocular motions intact. No scleral icterus. No injection or drainage. ENT: Nose without bleeding, purulent drainage. Throat without erythema, tonsillar hypertrophy or exudate. Airway patent. NECK: Trachea midline. Non tender CARDIOVASCULAR: Regular rate and rhythm without murmurs, gallops, or rubs. RESPIRATORY:decreased breath sounds B/L, prolonged expiratory phase, poor effort GASTROINTESTINAL: Abdomen soft, non-tender, nondistended. EXTREMITIES: No edema or joint tenderness. BACK: Nontender without deformity or crepitance. No flank tenderness. NEURO: AOx3. SKIN: No rash or erythema of visible areas Initial Vital Signs Initial Vital Signs: Vital Signs Pulse Rate 102 H 05/04/19 21:12 Respiratory Rate 22 05/04/19 21:12 Blood Pressure 157/92 H 05/04/19 21:12 Pulse Oximetry 100 05/04/19 21:12 Course Course Course Narrative: patient with little improvement after the above stated therapies. She will need hospitalization for control of her symptoms. Orders Ordered: ED Orders 05/04/19 21:15 Basic Metabolic Panel Stat Complete Blood Count AUTO DIFF Stat 05/04/19 22:20 XR chest 1V Stat Acetaminophen (Tylenol) 650 mg PO Q4HR [facility] Amitriptyline HCl (Elavil) 25 mg PO BEDTIME [facility] Enoxaparin Sodium (Lovenox) 40 mg SUBCUT DAILY [facility] Fluoxetine HCl (Prozac) 20 mg PO DAILY [facility] Ketorolac Tromethamine (Toradol) 30 mg IV Q6HR PRN PRN Reason: Pain, Moderate (4-6) Stop: 05/10/19 00:25 Levothyroxine Sodium (Synthroid) 150 mcg PO EVERY OTHER DAY [facility] Lorazepam (Ativan) 0.5 mg PO TID PRN PRN Reason: Anxiety Naloxone HCl (Narcan) 0.2 mg IV Q2MIN PRN PRN Reason: Opiate Reversal Non-Formulary Medication (Levothyroxine [Synthroid]) 0.175 mg PO EVERY OTHER DAY [facility] Ondansetron HCl (Zofran) 4 mg IV Q8HR PRN PRN Reason: Nausea And Vomiting Oxycodone HCl (Percolone) 20 mg PO Q4H PRN PRN Reason: BREAKTHROUGH PAIN Oxycodone HCl (Oxycontin) 80 mg PO BID [facility] Promethazine HCl (Phenadoz) 25 mg PO Q6HR PRN PRN Reason: Nausea Scopolamine (Transderm-Scop) 1 patch TOP Q3D [facility] Discontinued Medications Hydromorphone HCl (Dilaudid) 1 mg IV NOW ONE Stop: 05/04/19 21:19 Last Admin: 05/04/19 21:44 Dose: 1 mg Documented by: JOSE Hydromorphone HCl (Dilaudid) 1 mg IV NOW ONE Stop: 05/04/19 23:49 Last Admin: 05/04/19 23:55 Dose: 1 mg Documented by: MICHEL Prochlorperazine (Compazine) 10 mg IV NOW ONE Stop: 05/04/19 21:34 Last Admin: 05/04/19 21:44 Dose: 10 mg Documented by: JOSE Promethazine HCl (Phenergan 25 Mg Prepack) 1 bottle MISC SEEINSTR ONE Stop: 05/04/19 23:18 Last Admin: 05/04/19 23:37 Dose: Not Given Documented by: MICHEL Vital Signs Vital signs: Vital Signs - 8 hr 05/04/19 21:12 05/04/19 21:17 05/04/19 23:34 Temperature 98.3 F Pulse Rate 102 H 103 H Respiratory Rate 22 24 Blood Pressure 157/92 H Blood Pressure [Left Arm] 134/87 Pulse Oximetry 100 100 MDM - Nausea/Vomiting/Diarrhea Lab Data Result diagrams: 05/04/19 21:15 05/04/19 21:15 Labs: Lab Results 05/04/19 05/04/19 Range/Units 21:15 21:15 WBC 9.9 (4.5-11.0) X10^3/uL RBC 3.40 L (4.0-5.2) X10^6/uL Hgb 9.4 L (12.0-16.0) g/dL Hct 28.3 L (36-46) % MCV 83.2 (80-100) fL MCH 27.6 (26-34) PG MCHC 33.1 (30-36) % RDW 14.8 (11.6-14.8) % Plt Count 355 (150-400) X10^3/uL Neut % (Auto) 85.3 H (50-75) % Lymph % (Auto) 5.6 L (25-40) % Sibley % (Auto) 8.6 (3-14) % Eos % (Auto) 0.2 L (2-4) % Baso % (Auto) 0.3 (0-2) % Neut # (Auto) 8500 H (8931-9563) /uL Lymph # (Auto) 600 L (3008-5302) /uL S[place]y # (Auto) 800 (0-900) /uL Eos # (Auto) 0 (0-450) /uL Baso # (Auto) 0 (0-100) /uL Sodium 133 L (137-145) mmol/L Potassium 4.0 (3.4-5.1) mmol/L Chloride 93 L (98-107) mmol/L Carbon Dioxide 30 (22-32) mmol/L BUN 13 (7-17) mg/dL Creatinine 0.60 (0.52-1.04) mg/dL Estimated GFR > 60.0 (>60) mL/min BUN/Creatinine Ratio 21.7 (6-22) Glucose 115 H (70-100) mg/dL Calcium 9.4 (8.4-10.2) mg/dL Discharge Plan Departure Patient Disposition: Admitted as Observation Clinical Impression: Intractable pain Vomiting Qualifiers: Vomiting type: unspecified Vomiting Intractability: non-intractable Nausea presence: with nausea Qualified Code(s): R11.2 - Nausea with vomiting, unspecified Discharge Date/Time: 05/05/19 00:24 Admit Date/Time: 05/04/19 23:55 Admit Provider: Aby Rahman
[2019-05-04 23:34] VITALS: BP 134/87; PULSE 103; RESP 24; O2SAT 100
[2019-05-05] VITALS (9 sets, daily range): BP systolic 107–145; BP diastolic 70–91; PULSE 84–105; RESP 18–22; TEMP 36.2–36.9; O2SAT 90–100; BMI 24.5
--- NOTE | 2019-05-05 00:33 | P.HP_ITS ---
History of Present Illness History of Present Illness Date Patient Seen: 05/05/19 Time Patient Seen: 12:00 Chief complaint: Lung cancer patient, pain out of control Narrative: Marilu Alcantara is an unfortunate 53 y.o. female with lung cancer under the care of the Palliative Care service presents today with intractable nausea, vomiting and pain she has had X one day. She was recently admitted on April 20 and discharged on April 22 due to intractable pain. She was initiated on a fentanyl patch 25 mcg during her last admission and discharged with a prescr iption of it. Per the patient, Palliative care discontinued the patch due to concerns with using both the patch and oxycontin concurrently and they increased her dose of oxycontin ER to 80 mg twice daily and increased immediate release oxycodone from 10 mg to 20 mg q four hours for breakthrough pain. She states she is currently in the process of transitioning from Palliative Care to Hospice because she was not able to tolerate her first course of chemotherapy and was told she was having additional lesions despite starting on a second course of chemotherapy. She continues to have sweats, denies vision issues, denies difficulty swallowing, denies chest pain, has shortness of breath with activity but denies wheezing, she has nausea, vomiting and chronic constipation associated with her pain medications, states her urine stream is slower that it used to be, states she has more generalized muscle and joint pain that used to be associated with activity and is now increased with weight bearing. Denies numbing or tingling of her upper or lower extremities. 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) History of radiation therapy (Acute) Lung cancer (Inactive) Thyroid cancer (Acute) Tobacco abuse (Acute) Surgical History History of section (Acute) History of hysterectomy (Acute) History of vascular access device (Acute) Status post breast lumpectomy (Acute) Status post complete thyroidectomy (Acute) Family & Social History Family History Mother Breast cancer Father Cancer Social History: household members spouse Tobacco & Substance use: Smoking Status Former smoker, quit in November 2018 alcohol intake former alcohol intake frequency currently not drinking Substance Use Type does not use Meds Home Medications and Allergies Home Medications Medication Instructions Recorded Confirmed Type levothyroxine [Synthroid] 150 mcg PO EVERY OTHER DAY #0 07/16/07 04/20/19 History levothyroxine [Synthroid] 0.175 mg EVERY OTHER DAY #0 03/13/17 04/20/19 History fluoxetine 20 mg capsule 20 mg PO DAILY 06/23/18 04/20/19 History albuterol sulfate [ProAir HFA] 2 puff INHALATION Q4H PRN 04/20/19 04/20/19 History furosemide 20 mg PO DAILY 04/20/19 04/20/19 History lorazepam 0.5 mg PO TID PRN 04/20/19 04/20/19 History metoclopramide HCl 5 mg PO QID 04/20/19 04/20/19 History ondansetron HCl 8 mg PO Q8H PRN 04/20/19 04/20/19 History oxycodone 5 mg PO Q4H PRN 04/20/19 04/20/19 History oxycodone [OxyContin] 30 mg PO Q8H 04/20/19 04/20/19 History potassium chloride 10 meq PO DAILY 04/20/19 04/20/19 History scopolamine base 1 patch TOPICAL Q3D 04/20/19 04/20/19 History amitriptyline 25 mg PO BEDTIME 30 Days #30 tab 04/22/19 Rx amoxicillin-pot clavulanate 1 tab PO BID 5 Days #10 tab 04/22/19 Rx [Augmentin] fentanyl 25 mcg TOPICAL Q72H 14 Days #5 each 04/22/19 Rx Allergies Allergy/AdvReac Type Severity Reaction Status Date / Time Sulfa (Sulfonamide Allergy Unknown Verified 02/27/19 12:31 Antibiotics) [SULFA (SULFONAMIDE ANTIBIOTICS)] Review of Systems Review of Systems Narrative: All systems reviewed and are negative except as noted in the HPI. Exam Vital Signs (past 8 hours): - 05/04/19 21:12 05/04/19 21:17 05/04/19 23:34 Temperature 98.3 F Pulse Rate 102 H 103 H Respiratory Rate 22 24 Blood Pressure 157/92 H Blood Pressure [Left Arm] 134/87 Pulse Oximetry 100 100 05/05/19 00:19 Temperature Pulse Rate 103 H Respiratory Rate 22 Blood Pressure Blood Pressure [Left Arm] 132/91 H Pulse Oximetry 98 Oxygen Delivery Method Room Air Narrative Exam Narrative: Gen: Alert, oriented, well-developed 53 y.o. female, appears fatigued HEENT: normocephalic, atraumatic, conjunctiva clear, sclera non-icteric, oral mucosa appears dry Neck: supple, full ROM Resp: Course lung sounds, non-labored breathing CV: RRR, no murmur or rubs Abd: soft, non-tender, normoactive BTs Skin: appears slightly jaundiced, no lesions or rashes, dry and intact Neuro: Alert and oriented X 4 w/no focal deficits Extremities: moves all 4 extremities, is ambulatory, negative Joshua?s sign Psyche: normal mood and affect. Objective Labs Result Diagrams: 05/04/19 21:15 05/04/19 21:15 Labs: Laboratory Results - last 24 hr 05/04/19 05/04/19 21:15 21:15 WBC 9.9 RBC 3.40 L Hgb 9.4 L Hct 28.3 L MCV 83.2 MCH 27.6 MCHC 33.1 RDW 14.8 Plt Count 355 Neut % (Auto) 85.3 H Lymph % (Auto) 5.6 L [place] % (Auto) 8.6 Eos % (Auto) 0.2 L Baso % (Auto) 0.3 Neut # (Auto) 8500 H Lymph # (Auto) 600 L [place] # (Auto) 800 Eos # (Auto) 0 Baso # (Auto) 0 Sodium 133 L Potassium 4.0 Chloride 93 L Carbon Dioxide 30 BUN 13 Creatinine 0.60 Estimated GFR > 60.0 BUN/Creatinine Ratio 21.7 Glucose 115 H Calcium 9.4 Assessment & Plan Assessment & Plan narrative: Marilu Alcantara will be placed into observation for further management of her nausea and vomiting and to discussion options for additional home care services and transition to hospice. 1. Nausea and vomiting, acute, present on admission * She will receive alternating doses of IV zofran and oral promethazine 2. Metastatic Lung cancer, chronic, present on admission, active. * Prior smoker with 35 pack year history, history of thyroid cancer as well as breast cancer. * CT scan in November of 2018 noted right hilar mass with erosion into adjacent osseous structures. 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 * Patient follows with Dr. Garnett oncology. * She will continue Oxycontin ER 80 mg bid, oxycodone IR 20 mg q 4 hours for breakthrough pain * IV ketoralac 30 mg q 6 hours for moderate pain and tylenol 650 for mild pain or fever. 3. Constipation, chronic, present on admission, active * Patient is laxative dependent for management of bowel function on high-dose opiates. * Patient reports using Fleet's enemas daily. She has used MiraLax and other stool softeners and laxatives previously with incomplete success. * Docusate 100 mg twice daily, Doculax per rectum as needed or Fleet enema daily as needed for constipation. 4. Depression with anxiety, chronic, present on admission, active * Continue home dose of fluoxetine 20 mg daily. * Continue home dose of lorazepam 0.5 mg 3 times daily as needed which will also augment pain management. 5. Hypothyroidism, acquired, present on admission, stable * patient with history of thyroidectomy for thyroid cancer 13 years ago. * Continue home regimen of alternating doses of levothyroxine 150 mcg every other day alternating with 175 mcg every other day. 6. End of life care planning * consult to assist patient to receive home health services and enroll in Hospice FEN: 0.45 NS at 100 ml/hour, regular diet, chemistries in the am Patient is placed into observation as her stay is not likely to exceed 2 midnights. VTE Prophylaxis: Enoxaparin 40 mg subQ daily Medications reconciled: yes Disposition: likely discharge to home Code Status: DNR Quality VTE Deep Vein Thrombosis/Pulmonary Embolism Present on Admission: No
--- NOTE | 2019-05-05 01:08 | PC.NURSE ---
Addendum entered by [place] R.N. 05/05/19 06:24: 0550: Pt feeling anxious, crying. Medicated with Ativan 0.5mg po. Pt denies nausea at this time. Medicated for pain with Oxycodone 20mg. Original Note: Industrial Hygiene Technician Note: 0025: Admitted to acute care room 214 from ER, accompanied by . Vital signs stable. Portacat accessed by ER. Pt is alert, oriented X3. Assisted to bathroom- unsteady on her feet; voided. 0055: went home. Pt resting in bed.
[2019-05-05] MEDS: OXYCODONE IR 10 MG TABLET 20 MG PO ×5 (01:32→21:16)
[2019-05-05] MEDS: SODIUM CHLORIDE 0.45% 1,000 ML 100 ML IV ×3 (01:50→18:30)
[2019-05-05] MEDS: LORazepam 0.5 MG TABLET PO (05:47)
[2019-05-05] MEDS: ACETAMINOPHEN 325 MG TABLET 650 MG PO ×5 (05:48→21:15)
[2019-05-05 06:15] LABS: Add Manual Diff / Slide Review NO; Basophils Absolute Auto 0 /uL (0-100); Basophils Percent Auto 0.2 % (0-2); Eosinophils Absolute Auto 0 /uL (0-450); Eosinophils Percent Auto 0.3 % (2-4); Hematocrit 28.2 % (36-46); Hemoglobin 9.4 g/dL (12.0-16.0); Lymphocytes Absolute Auto 800 /uL (1100-4500); Lymphocytes Percent Auto 10.1 % (25-40); Mean Corpuscular HGB Conc 33.2 % (30-36); Mean Corpuscular Hemoglobin 27.5 PG (26-34); Mean Corpuscular Volume 82.7 fL (80-100); Monocytes Absolute Auto 700 /uL (0-900); Monocytes Percent Auto 9.3 % (3-14); Neutrophils Absolute Auto 6200 /uL (1500-7000); Neutrophils Percent Auto 80.1 % (50-75); Platelet Count 347 X10^3/uL (150-400); Red Blood Cell Count 3.41 X10^6/uL (4.0-5.2); White Blood Cell Count 7.7 X10^3/uL (4.5-11.0)
[2019-05-05] MEDS: ONDANSETRON 4 MG/2 ML INJ IV (06:15)
[2019-05-05 06:20] LABS: Blood Urea Nitrogen 9 mg/dL (7-17); Calcium 9.6 mg/dL (8.4-10.2); Carbon Dioxide 31 mmol/L (22-32); Chloride 94 mmol/L (98-107); Estimated Glomerular Filt Rate > 60.0 mL/min (>60); Glucose 106 mg/dL (70-100); HEMOLYSIS < 15 (0-50); Potassium 3.9 mmol/L (3.4-5.1); Sodium 134 mmol/L (137-145)
[2019-05-05] MEDS: OXYCODONE ER 20 MG TAB 60 MG PO ×2 (08:47→21:15)
[2019-05-05] MEDS: FLUoxetine 20 MG CAPSULE PO (08:49)
[2019-05-05] MEDS: DOCUSATE 100 MG CAPSULE PO ×2 (08:49→21:16)
[2019-05-05] MEDS: KETOROLAC 30 MG/ML VIAL IV ×2 (08:50→18:30)
[2019-05-05] MEDS: fentaNYL 25 MCG/PATCH TOP (09:44)
[2019-05-05] MEDS: ENOXAPARIN 40 MG/0.4 ML SYRINGE SUBCUT (09:44)
--- NOTE | 2019-05-05 10:18 | CM.DANOTE ---
DCP: Case received, EMR reviewed and met with patient. Introduced self and role. Was able to converse with patient briefly, and obtain baseline history and activity information. Was also able to discuss hospice. DCP assessment completed with information currently available. Patient is a 53 year old female who admitted yesterday evening to the care of the hospitalist team. PCP: Dr. Sommer. Payer: confirmed: Marie DOE Patient came to the hospital via family vehicle secondary to increased pain. Patient has history of Breast, and Lung Cancer, in which she was receiving palliative chemo last month. She is here for pain control. Oncology had taken her off Fentanyl, and increased her ER Oxycontin and quick release Oxycodone. Patient continues to have pain. Met with patient in her room, quiet, but able to converse. Discussed hospice, and patient is wanting hospice services. She resides in [place] with her spouse. She recently stopped driving, and stated, she can get around in the house, but sometimes it's difficult due to pain. Prior to meeting with patient, called [facility], spoke to Stephenie, and stated that theycould potentially see patient Thursday. Faxed her over information to review. They do not do informational visits. Luz from [facility] is going to be here at approximately 11:00. Called [facility], and stated that they could do informational visit between 12:15-12:30. Faxed them information on patient as well. No POLST is currently on file. Discussed hospice with the patient, and discussed their services, and the team members. Mentioned pain control and comfort, and support of social work, spiritual support, as well as nursing. Asked her about an informational visit, stated, she would like one. Let her know that hospice informational visit is set up between noon and 12:30. At this time, patient is here for pain control, possible Pneumonia. P: DCP will follow closely, and be available for patient regarding any questions and resources. Will collaborate with Luz at [facility] after she sees patient. Will also follow up with [facility], since information was sent. Yumiko Alford RN/Education Program Specialist
--- NOTE | 2019-05-05 12:54 | CM.DPC ---
Addendum entered by Yumiko Alford R.N. 05/05/19 15:31: Hospitalist, Dr. Urbina is aware of plan, and will ensure adequate pain management before discharge. He is aware that [facility] next [facility]. Original Note: Spoke to Luz at [facility] , who was here to see patient. Patient is electing to use [facility] , and they can see her early next week. Patient already has oxygen in place with [facility]. Patient also signed consents for hospice. Goal until then is to ensure that patient has adequate pain control until then. P: DCP to follow closely. Plan is for home, Hospice the consents signed. They can open her at home early next week. Yumiko Alford RN/Sports Betting Manager
--- NOTE | 2019-05-05 14:27 | PC.NURSE ---
Pain: Lots of pain this am, sleepy at times as well, reports she couldn't sleep during the night due to vomiting. Now she is making up her sleep time but she is still having pain. Recieved oxycontin, oxycodone, tylenol, toradol, pain down from 7/10 to 5/10, then added fentynal patch and a couple of hours later she was reporting pain at 3/10. She was able to get some sleep this morning. Awake this afternoon, received more oxycodone and tylenol. And reports her pain is much better since the fentynal has been added. Spouse at bedside. Is a little teary today, hospice and everything else has been a bit overwhelming for her, she has been fighting cancer, things have not gone as planned. Support given to pt and spouse, given time to verb feelings. Cont w/poc.
[2019-05-05] MEDS: LORazepam 0.5 MG TABLET 1 MG PO (18:07)
[2019-05-05] MEDS: AMITRIPTYLINE 25 MG TABLET PO (21:16)
[2019-05-05] MEDS: LEVOTHYROXINE 150 MCG TABLET PO (21:16)
[2019-05-06] VITALS (10 sets, daily range): BP systolic 105–131; BP diastolic 70–91; PULSE 78–92; RESP 12–18; TEMP 36.4–36.8; O2SAT 92–97
[2019-05-06] MEDS: ACETAMINOPHEN 325 MG TABLET 650 MG PO ×5 (00:40→20:46)
[2019-05-06] MEDS: OXYCODONE IR 10 MG TABLET 20 MG PO ×5 (01:25→20:46)
[2019-05-06] MEDS: SODIUM CHLORIDE 0.45% 1,000 ML 100 ML IV ×2 (04:37→14:43)
[2019-05-06] MEDS: DOCUSATE 100 MG CAPSULE PO ×2 (08:15→20:46)
[2019-05-06] MEDS: FLUoxetine 20 MG CAPSULE PO (08:15)
[2019-05-06] MEDS: OXYCODONE ER 20 MG TAB 60 MG PO ×2 (08:15→20:45)
[2019-05-06] MEDS: OXYCODONE IR 5 MG TABLET 20 MG PO (08:16)
[2019-05-06] MEDS: fentaNYL 50 MCG/PATCH TOP (08:16)
[2019-05-06] MEDS: ENOXAPARIN 40 MG/0.4 ML SYRINGE SUBCUT (08:16)
[2019-05-06] MEDS: KETOROLAC 30 MG/ML VIAL IV ×2 (08:18→14:42)
[2019-05-06] MEDS: METOCLOPRAMIDE 10 MG/2 ML INJ IV ×2 (08:18→16:41)
--- NOTE | 2019-05-06 08:28 | CM.DPC ---
Addendum entered by Pat Schmidt LPN 05/06/19 15:30: Brief discussion now with pt and her family. Quinton wished to go over the details for tomorrow/done. All are hopeful that pt will feel well enough for home tomorrow. Quinton states it is very important to them that the DME be all set up before she comes home and he will need to stay at the house for that to accept the DME and handle their 2 dogs during that process. He will then come to the hospital to pick his up. Ashanti clarifies that she has been here visiting [facility] and needs to return Thursday. Pt says their other daughter Isadora does live in [place]. Addendum entered by Pat Schmidt LPN 05/06/19 15:19: Dr. Urbina was just here for an update. He spoke to this DCPlanner and to the UR team. He notes that pt is NOT stable for a d/c today and will not be until the pain control is adequate. Pt's and daughter Ashanti are now here. Will check in with them and continue to follow closely. Addendum entered by Pat Schmidt LPN 05/06/19 12:34: Had lengthy phone discussion with pt's Quinton: [phone]. He notes that he would like [facility] to let him know approximate time of the equipment delivery and now that he knows it is set up for tomorrow he will give some thought to where the hospital bed will be placed. He says he did see Dr. Urbina today and was updated re the ongoing pain issues. He says he is now on his way back to the hospital and has all appts written down. He says that he very much supports his in her desire to see Dr. Diaz on 05/10. It's not that she wants to continue oncology treatment, it's that this is Dr. Diaz's last day and this has been a very important relationship to her. He also confirms that pt does have oxygen at home. (Pt is currently using this on a PRN basis in the hospital per RN Agnes Naik, caring for pt today.) Addendum entered by Pat Schmidt LPN 05/06/19 12:09: Estill back from Sandra/[facility]: She stated that pt was scheduled for an open to service in her home on Thursday, 05/10 between 10 and 11 AM. The delivery of a hospital bed, specialized mattress (APAP), overbed table, transport w/c and oxygen (pt not currently on o2) has been ordered and will be delivered on Tuesday 05/08. Met with pt and introduced self and role. Pt is found sitting up in bed, looks a bit groggy and admits it's a bit hard to think. Pt says she had hoped she could go home today but when she tried to get up her pain escalated. Pt does say that she had her final appt with her oncologist Dr. Diaz set up for 05/09 at 1550 and needs to be there 30 minutes early. (Dr. Diaz is in [place] and pt lives in [place]) and very much wishes to keep it. A vm is left for KARSTEN Flores. It would seem that pt would have time to do both appts but will defer to [facility]. Pt requests that the [facility] appts be written out for her as I probably won't remember and she will share this with her when he visits next./done. Will also call her now with the update. Will fax these notes to [facility] for Sandra's review. Sandra says the only other documentations [facility] will need is the discharge summary. Addendum entered by Pat Schmidt LPN 05/06/19 11:54: Case discussed in Rounds as planned: Dr. Urbina stated that pt continues to have pain that is not well controlled and will continue to adjust these. D/c will not be today. UR Team discussed admission status and confirmed that status remains: OBS. Addendum entered by Pat Schmidt LPN 05/06/19 08:39: A consult order for EXECUTIVE ACCOUNT MANAGER: social service manager routine: in home hospice services : 05/05 01:22 is noted. Discussed with Fur Coat Sewer Millie and EXECUTIVE ACCOUNT MANAGER on for the day, Magaly. Millie followed up with Dr. Urbina who noted no need for EXECUTIVE ACCOUNT MANAGER, need was for DCPlanning team. He requested the consult order be cancelled/done. Original Note: DCP: continued: case received, EMR reviewed. Noted that pt has signed consents with [facility] and plan is to home setting when her pain is adaquately controlled. [facility] is set to open sometime next week. Have placed a call now to KARSTEN Flores and left a vm re ? of planned date for the open to service by [facility], ? of DME etc. P: discuss in Team Rounds in order to obtain a benton picture of current needs and plan and then follow up with pt and [facility].
--- NOTE | 2019-05-06 12:02 | PM.CHAP ---
Refused fire prevention bureau captain visit yesterday. Spoke with and assured him of fire prevention bureau captain availability. Pain level high. Hopeful re discharge soon.
--- NOTE | 2019-05-06 12:47 | P.PN_ITS ---
Subjective Subjective Date Patient Seen: 05/06/19 Time Patient Seen: 12:48 Interval history: Ms. Marilu Alcantara is a 53-year-old female with history significant for breast cancer, thyroid cancer, lung cancer status post radiation therapy and anxiety and depression, hypothyroidism, and lower extremity edema on Lasix who is seen for follow-up today of uncontrolled pain in the setting for malignancy causing significant nausea and vomiting. Today she feels improved, although this morning she had severe bout of pain. I increased her fentanyl patch to 50 mcg today, with some improvement however when the patient ambulates she still has significant left-sided chest and abdominal pain that is severe. Her nausea and vomiting are improved but still present. She has plan for hospice evaluation next week. Once her pain is adequately controlled and nausea and vomiting are improved, she can be discharged home with plan for hospice evaluation. Exam Vital Signs (past 8 hours): - 05/06/19 05:14 05/06/19 09:30 05/06/19 10:19 Temperature 98.1 F 98.1 F Pulse Rate 83 92 H Respiratory Rate 16 18 Blood Pressure 110/74 105/70 Pulse Oximetry 96 95 97 Oxygen Delivery Method Room Air Oxygen Flow Rate 2 Narrative Exam Narrative: GENERAL APPEARANCE: well developed, adequately nourished, moderately ill-appearing female in no acute distress HEENT: Normocephalic, PERRLA, sluggish, sclera anicteric, conjunctiva clear, EOMs intact without nystagmus, no sinus tenderness to percussion, no rhinorrhea, mucous membranes are moist and pink without lesions or exudate. NECK/THYROID: neck supple, no JVD, no carotid bruit, no thyromegaly, trachea midline. LYMPH NODES: no cervical or supraclavicular lymphadenopathy. SKIN: [place], warm and dry, no visible lesions, no rashes, ulcerations or petechiae. HEART: regular rate and rhythm, S1-S2, no murmur, no rubs or gallops, brisk capillary refill, no edema LUNGS: Breath sounds diminished in her bilateral lobe bases, clear to auscultation bilaterally, no coarseness crackles or wheezing, no cough present CHEST: Symmetrical movement, shallow tidal volume, pain on deep inspiration, no accessory muscle use, no pain to AP and lateral compression. ABDOMEN: Soft, no distention, LUQ abdominal tenderness, no guarding or pe ritoneal signs, no organomegaly, flank tenderness, active bowel tones. EXTREMITIES: moves all extremities, strength is 5/5 and symmetrical, no deformities or joint effusions. There is trace lower extremity edema. NEUROLOGIC: AAO x4, no focal neurologic deficits, cranial nerves II-XII grossly intact, sensation intact to light touch, hearing grossly normal to speech. PSYCH: Fair to poor eye contact, patient appears depressed, cooperative, appropriate with stable behavior Objective Labs Result Diagrams: 05/05/19 06:00 05/05/19 06:00 Assessment & Plan Assessment & Plan narrative: This is a 53-year-old female patient with breast thyroid and lung cancer who has undergone radiation therapy and was undergoing chemotherapy (held this month for the holidays and unlikely to continue per patient) admitted for uncontrolled pain. She had had issues with a fentanyl patch as an outpatient this was not continued by her palliative care providers. She is doing quite well in a fentanyl patch but still has significant pain upon ambulation especially on her left side. Her nausea is improved with IV Reglan. I have increased her fentanyl patch today in the hopes this will provide adequate pain control so that she can discharge home until hospice evaluation next week. 1. Nausea and vomiting, acute, present on admission She will receive alternating doses of IV zofran, IV reglan, and oral prometha zine 2. Metastatic Lung cancer, chronic, present on admission, active. Prior smoker with 35 pack year history, history of thyroid cancer as well as breast cancer. CT scan in November of 2018 noted right hilar mass with erosion into adjacent osseous structures. CT scan in April identified bilateral adrenal masses as well as paraesophageal mass likely metastatic in etiology. Patient follows with Dr. Garnett oncology. She will continue Oxycontin ER 60 mg bid, oxycodone IR 20 mg q 4 hours for breakthrough pain and fentanyl patch increased to 50 mcg this AM. IV ketoralac 30 mg q 6 hours for moderate pain and tylenol 650 for mild pain or fever. 3. Constipation, chronic, present on admission, active Patient is laxative dependent for management of bowel function on high-dose opiates. Patient reports using Fleet's enemas daily. She has used MiraLax and other stool softeners and laxatives previously with incomplete success. Docusate 100 mg twice daily, Doculax per rectum as needed or Fleet enema daily as needed for constipation. 4. Depression with anxiety, chronic, present on admission, active Continue home dose of fluoxetine 20 mg daily. Continue home dose of lorazepam 0.5 mg 3 times daily as needed which will also augment pain management. 5. Hypothyroidism, acquired, present on admission, stable patient with history of thyroidectomy for thyroid cancer 13 years ago. Continue home regimen of alternating doses of levothyroxine 150 mcg every other day alternating with 175 mcg every other day. 6. End of life care planning SW consult to assist patient to receive home health services and enroll in Hospice FEN: 0.45 NS at 100 ml/hour, regular diet, chemistries in the am VTE Prophylaxis: Enoxaparin 40 mg subQ daily Disposition: remains observation, likely discharge to home pending hospice next week. Anticipate pain to be controlled enough to discharge home possibly later today or early tomorrow. Code Status: DNR Quality VTE Deep Vein Thrombosis/Pulmonary Embolism Present on Admission: No
[2019-05-06] MEDS: ONDANSETRON 4 MG/2 ML INJ IV (13:26)
--- NOTE | 2019-05-06 15:17 | PC.NURSE ---
Pain control: Pt reporting out of control pain this am, nausea. Dr. Urbina made aware. Additional oxycodone given, fentynal patched increased to 50, reglan ordered for the nausea and same given and effective. Also received tylenol, toradol, oxycontin at the same time. Pain down to a 4-5/10 later in the morning. then had pain again, received more oxycodone, had some nausea and received zofran, pain and nausea improved. Pt teary at times. SI don't understand, I don't feel bad sitting here but as soon as I get up I can't hardly move the pain is so bad. Pt and spouse given time to verb feelings. Later this afternoon got more tylenol and toradol IV and pt reported the pain had finally decreased to a 3/10 while resting, a 5 when up and moving. She is visiting with her dtr and spouse this afternoon. Pt talking about her dtrs a lot today, then would get teary afterwards. Cont to support current coping [facility], offer, give pain meds as ordered.
[2019-05-06] MEDS: LEVOTHYROXINE 100 MCG TABLET PO (20:46)
[2019-05-06] MEDS: LEVOTHYROXINE 75 MCG TABLET PO (20:46)
[2019-05-06] MEDS: AMITRIPTYLINE 25 MG TABLET PO (20:46)
[2019-05-07] MEDS: SODIUM CHLORIDE 0.45% 1,000 ML 100 ML IV (01:09)
[2019-05-07] MEDS: OXYCODONE IR 10 MG TABLET 20 MG PO ×4 (01:09→15:15)
[2019-05-07] MEDS: METOCLOPRAMIDE 10 MG/2 ML INJ IV ×2 (01:10→11:08)
[2019-05-07] MEDS: ACETAMINOPHEN 325 MG TABLET 650 MG PO ×3 (01:10→08:42)
[2019-05-07] MEDS: LORazepam 0.5 MG TABLET 1 MG PO ×3 (01:25→15:15)
[2019-05-07] MEDS: ONDANSETRON 4 MG/2 ML INJ IV (05:08)
[2019-05-07 05:39] LABS: Blood Urea Nitrogen 11 mg/dL (7-17); Calcium 9.2 mg/dL (8.4-10.2); Carbon Dioxide 29 mmol/L (22-32); Chloride 96 mmol/L (98-107); Estimated Glomerular Filt Rate > 60.0 mL/min (>60); Glucose 99 mg/dL (70-100); HEMOLYSIS < 15 (0-50); Potassium 4.4 mmol/L (3.4-5.1); Sodium 134 mmol/L (137-145)
[2019-05-07 08:00] VITALS: O2SAT 97
[2019-05-07] MEDS: DOCUSATE 100 MG CAPSULE PO (08:42)
[2019-05-07] MEDS: FLUoxetine 20 MG CAPSULE PO (08:42)
[2019-05-07] MEDS: ENOXAPARIN 40 MG/0.4 ML SYRINGE SUBCUT (08:43)
[2019-05-07] MEDS: OXYCODONE ER 20 MG TAB 60 MG PO (08:43)
[2019-05-07 10:33] VITALS: BP 114/73; PULSE 87; RESP 18; TEMP 36.6; O2SAT 90
--- NOTE | 2019-05-07 11:45 | PM.DS.1 ---
History of Present Illness History of Present Illness Date Patient Seen: 05/07/19 Chief complaint: Lung cancer patient, pain out of control Narrative: Written by Aby GRAHAM: Marilu Alcantara is an unfortunate 53 y.o. female with lung cancer under the care of the Palliative Care service presents today with intractable nausea, vomiting and pain she has had X one day. She was recently admitted on April 20 and discharged on April 22 due to intractable pain. She was initiated on a fentanyl patch 25 mcg during her last admission and discharged with a prescription of it. Per the patient, Palliative care discontinued the patch due to concerns with using both the patch and oxycontin concurrently and they increased her dose of oxycontin ER to 80 mg twice daily and increased immediate release oxycodone from 10 mg to 20 mg every four hours for breakthrough pain. She states she is currently in the process of transitioning from Palliative Care to Hospice because she was not able to tolerate her first course of chemotherapy and was told she was having additional lesions despite starting on a second course of chemotherapy. She continues to have sweats, denies vision issues, denies difficulty swallowing, denies chest pain, has shortness of breath with activity but denies wheezing, she has nausea, vomiting and chronic constipation associated with her pain medications, states her urine stream is slower that it used to be, states she has more generalized muscle and joint pain that used to be associated with activity and is now increased with weight bearing. Denies numbing or tingling of her upper or lower extremities. Discharge Providers Provider Date of admission: 05/04/19 23:55 Discharge Date: 05/07/19 Primary care physician: Robert Sommer DO Consults: 05/05/19 01:22 Consult to [facility] [place] - Acute Care Registered Nurse Routine Comment: In-home hospice services 05/06/19 08:37 Consult to [facility] - Acute Care Registered Nurse Routine Comment: cancel consult to [facility]: Discharge provider: Beverly Holliday DO Summary Hospital Course Discharge Diagnosis: 1. Intractable pain secondary to metastatic lung cancer, acute on chronic, present on admission. Improved. 2. Nausea and vomiting, acute on chronic, present on admission. Acute portion resolved. 3. Constipation, chronic, present on admission. Stable. 4. Depression with anxiety, chronic, present on admission. Stable. 5. Secondary hypothyroidism, chronic, present on admission. Stable. 6. End of life care planning Hospital Course: Marilu Alcantara is a 53-year-old female with a past medical history significant for previous breast and thyroid cancer and now with metastatic lung cancer who has undergone palliative radiation therapy and was undergoing chemotherapy (held this month for the holidays and unlikely to continue per patient) who was admitted for intractable pain. The patient was previously hospitalized and discharged on fentanyl patch and had difficulty obtaining this as an outpatient and was discontinued by her palliative care provider. 1. Intractable pain secondary to metastatic lung cancer, acute on chronic, present on admission. Improved. -Patient follows with Dr. Garnett of oncology. Patient is a former smoker with 35 pack year history. Patient also has a history of thyroid and breast cancer. -CT scan in November of 2018 noted right hilar mass with erosion into adjacent osseous structures. -CT scan in April 2019 identified bilateral adrenal masses, as well as, paraesophageal mass likely metastatic in etiology. -Continued Oxycontin ER increased from 30 mg to 60 mg twice daily, oxycodone IR increased from 10 mg to 20 mg every 4 hours for breakthrough pain, and fentanyl patch 50 mcg every 3 days. -Started gabapentin 300 mg 3 times daily for neuropathic pain modulation. Patient has been on this medication in the past while she was being treated for breast cancer and tolerated it well. 2. Nausea and vomiting, acute on chronic, present on admission. Acute portion resolved. -Acute portion likely secondary to intractable pain. -Continued alternating doses of IV zofran, IV reglan, and oral promethazine 3. Constipation, chronic, present on admission. Stable. -The patient reports she is laxative dependent and uses Fleet's enemas daily for management of bowel function on high-dose opiates. She has used MiraLax and other stool softeners and laxatives previously with incomplete success. -Continued Colace 100 mg twice daily, MiraLax 17 g daily, and Doculax per rectum or Fleet enema daily as needed for constipation. 4. Depression with anxiety, chronic, present on admission. Stable. -Continued home dose of fluoxetine 20 mg daily. -Continued lorazepam 0.5 mg every 4 hours as needed for anxiety or nausea which will also augment pain management. 5. Secondary hypothyroidism, chronic, present on admission. Stable. -Patient had history of thyroid cancer status post thyroidectomy 13 years ago. -Continued home regimen of alternating doses of levothyroxine 150 mcg and 175 mcg every other day. 6. End of life care planning -Consulted TIMEKEEPER for hospice referral and assistance with hospice enrollment. We appreciate her time and care of the patient. Exam Vital Signs (past 8 hours): - 05/07/19 08:00 05/07/19 10:33 Temperature 97.8 F Pulse Rate 87 Respiratory Rate 18 Blood Pressure 114/73 Pulse Oximetry 97 90 L Oxygen Delivery Method Room Air Oxygen Flow Rate 0 Narrative Exam Narrative: General: Middle aged female lying in bed and in no acute distress, appears older than stated age and chronically ill, appropriately interactive HEENT: Normocephalic, atraumatic. External ears without defect. Pupils equal, round, and reactive to light. Anicteric sclerae, moist conjunctivae, and no lid lag. Neck: Supple with full range of motion. No lymphadenopathy or thyromegaly. Cardiovascular: Regular rate and rhythm without murmurs, rubs, or gallops appreciated. Pulmonary: Diminished throughout but clear to auscultation bilaterally without crackles, wheezes, or rhonchi. Normal respiratory effort with no use of accessory muscles. Abdomen: Soft, bowel sounds present, nontender, nondistended. No hepatosplenomegaly or masses appreciated. Extremities: No clubbing, cyanosis, or edema. Reported left forearm edema but had resolved by time of exam. Skin: Normal temperature, turgor, and texture; no rash, ulcers, or subcutaneous nodules appreciated. Neurological: Cranial nerves grossly intact. Psychiatric: Depressed mood and flat affect. Appears to be alert and oriented to person, place, and time. Objective Labs Result Diagrams: 05/05/19 06:00 05/07/19 05:26 Labs: Laboratory Results - last 24 hr 05/07/19 05:26 Sodium 134 L Potassium 4.4 Chloride 96 L Carbon Dioxide 29 BUN 11 Creatinine 0.50 L Estimated GFR > 60.0 BUN/Creatinine Ratio 22.0 Glucose 99 Calcium 9.2 Discharge Plan Discharge Plan Patient Disposition: Home Discharge comment: You're being discharged home. Hospice will open on Thursday and take over all of your comfort care medications. Your equipment was delivered today. Your provided care giving resources if needed in the future. Discharge orders & Medications Prescriptions: New acetaminophen 325 mg Tablet 650 mg PO Q4HR PRN (Reason: fever or pain) Qty: 30 RF: 0 docusate sodium [DOK] 100 mg Capsule 100 mg PO BID Qty: 60 RF: 0 promethazine 6.25 mg/5 mL Syrup 25 mg PO Q6HR PRN (Reason: Nausea) Qty: 473 RF: 0 oxycodone 10 mg Tablet 20 mg PO Q4H PRN (Reason: BREAKTHROUGH PAIN) Qty: 30 RF: 0 polyethylene glycol 3350 17 gram powder in packet 17 gram PO DAILY Qty: 30 RF: 0 bisacodyl 10 mg suppository 10 mg [place] DAILY PRN (Reason: constipation) Qty: 28 RF: 0 lorazepam 0.5 mg tablet 0.5 mg PO Q4-6H PRN (Reason: Anxiety) Qty: 20 RF: 0 fentanyl 50 mcg/hr patch 72 hour 1 patch transdermal Q72H Qty: 3 RF: 0 oxycodone [OxyContin] 60 mg tablet,oral only,ext.rel.12 hr 60 mg PO Q12H Qty: 10 RF: 0 gabapentin 300 mg capsule 300 mg PO TID Qty: 90 RF: 0 fluoxetine 20 mg capsule 20 mg PO DAILY Qty: 30 RF: 0 Continued levothyroxine [Synthroid] 150 MCG tablet 150 mcg PO EVERY OTHER DAY Qty: 0 RF: 0 levothyroxine [Synthroid] 175 MCG tablet 0.175 mg EVERY OTHER DAY Qty: 0 RF: 0 potassium chloride 10 mEq tablet extended release 10 meq PO DAILY RF: 0 furosemide 20 mg tablet 20 mg PO DAILY RF: 0 ondansetron HCl 8 mg tablet 8 mg PO Q8H PRN (Reason: nausea from chemotherapy) RF: 0 scopolamine base 1 mg over 3 days patch 3 day 1 patch topical Q3D RF: 0 albuterol sulfate [ProAir HFA] 90 mcg/actuation HFA aerosol inhaler 2 puff inhalation Q4H PRN (Reason: Wheezing) RF: 0 amitriptyline 25 mg Tablet 25 mg PO BEDTIME 30 Days Qty: 30 RF: 0 metoclopramide HCl 5 mg tablet 5 mg PO QID 60 Days Qty: 60 RF: 2 Discontinued oxycodone [OxyContin] 30 mg tablet,oral only,ext.rel.12 hr 30 mg PO Q8H RF: 0 fentanyl 25 mcg/hr Patch 72 Hour 25 mcg topical Q72H 14 Days Qty: 5 RF: 0 fluoxetine 20 mg capsule See Rx Instructions .ROUTE .COMPLEX RF: 0 oxycodone 10 mg tablet 5 - 10 mg PO Q4H PRN (Reason: pain) RF: 0 Follow up/Referrals: Robert Sommer DO [Primary Care Provider] - Diet/Activity/Treatments Diet: Diet as Tolerated Diet comment: Comfort eating Activity: Activity as tolerated but mostly bed rest Visit Report/Discharge Packet Instructions: DI for Cancer Pain Syndromes, Coping With Pain Related to Cancer and Chemotherapy, DI for Nausea -- Adult, DI for Prescription Opioid Use, Fentanyl Transdermal Patch Discharge Data Primary Care Provider: Robert Sommer Attending Provider: Aby Rahman Admit Date/Time: 05/04/19 23:55 Quality VTE Deep Vein Thrombosis/Pulmonary Embolism Present on Admission: No
--- NOTE | 2019-05-07 12:02 | PM.CHAP ---
Good visit with patient. Reassurance re hospice care and family time during future at time. Prayer and support. Pt very accepting of care.
--- NOTE | 2019-05-07 12:42 | CM.DPC ---
Addendum entered by Pat Schmidt LPN 05/07/19 13:44: Met now with Quinton. He stated he did accept the hospital bed after all and it is set up for pt to use when she wishes. He says the overbed table was not delivered, nor was a bedside commode. Have spoken now with [facility] procurement cost coordinator Kaitlin as Kim not available. She will call their vendor [facility] to alert them to need for delivery. Quinton was given pvt caregiver resources as noted. Asked how much his daughter Isadora will be able to help. He notes he at this point does not have a clear sense of what help will be given. He says she has 2 boys who are involved in many activities and no specific help has been offered. He is concerned re the time that pt will be home before [facility] gets there but is committed to doing his best for his . He notes she is markedly groggy now after the medication changes. P: is home now: [facility] is faxed the d/c summary and these notes. Original Note: DCP: continued: checked in on pt this morning. She stated her pain level was manageable at this point and that she was hoping to go home. At that point she had not seen Dr. Holliday. Case then discussed in Team Rounds and now a d/c order for home is in place/DC summary still in draft. Will fax [facility] to [facility] when completed. Have updated Kim by phone re the d/c for today and the plan for [facility] to see pt on 05/10. Dr. Holliday wanted pt's to have resources for pvt caregivers. Will provide these and do know that [facility] team will be following closely for options as pt's needs continue to change. Pt and Sher have decided they do not wish to use the hospital bed and had planned to let the vendor know when the delivery was make today. Have now confirmed the d/c with THIAGO Roa who is assisting THIAGO Muir in the d/c process. Janina has called a pharmacy in [place] to confirm that all controlled medications are available. Pt may already have some of these medicines at home and this will be discussed with Sher when he arrives. Pt is groggy and defers all to Sher. Have left a vm for Sher with plan for pt to be ready by 1400. Will follow up when he arrives to make sure all is going as planned.
--- NOTE | 2019-05-07 14:50 | PC.NURSE ---
Addendum entered by Isadora Castro R.N. 05/07/19 15:45: pt and her state they have all belongings upon discharge. Addendum entered by Isadora Castro R.N. 05/07/19 15:40: Pt's has O2 tank in car, pt discharged on 2L NC O2 for comfort. Left chest port flushed with NS and Heparin per hospital policy, brisk blood return. De-accessed without difficulty, no bleeding noted, band-aid applied per pt preference. Discharge summary packet reviewed iwth pt and her . No voiced concerns, pt and her believe they have enough supply of Oxycontin ER, Oxycodone IR and Fentanyl patches to last until Thursday for hospice meeting. Pt has different doses of medications in these narcotics at home and is aware to take the new prescribed dose upon this discharge. Pt left unit at 1539 via wheelchair with RN escort with her daughter and present. Original Note: Day Shift- Pt A&OX4, anxious and tearful this AM, support provided. Pt able to make her needs known using call light. Moderate fall risk precautions in place, pt ambulating OOB with SBA, slightly unsteady gait at times. Reports 3-4/10 aching to left flank, left lower chest area and left upper abd. PRN Oxycodone given at 1110 with PRN Reglan per pt request for anti-emetic with prn pain medication. Pt states her left arm/wrist appears swollen, upon assessment at 0850, right arm does appear slightly edematous, non-pitting. Spoke with Dr. Holliday at 1410 and is aware of left arm edema at the time of this writers assessment. Prescriptions faxed to [facility] where pt does get her narcotic prescriptions filled. Another RN called this pharmacy and clarified that they do have enough supply to have script filled when they receive the hard copy of prescription. Spoke with Pat in discharge planning, pt is okay to discharge at this time.
== END 2019-05-07 15:39 | disposition home or self-care (01) ==
LOC: ED 23:36 → AC 23:56
PROVIDERS: Internal Medicine; Admitting Provider Nurse Practitioner Family; Emergency Provider Emergency Medicine; PCP Family Medicine; Visit Provider Nurse Practitioner Family
DX: C34.91 Malignant neoplasm of unspecified part of right bronchus or lung (principal); R11.2 Nausea with vomiting, unspecified; R19.7 Diarrhea, unspecified; Z87.891 Personal history of nicotine dependence; F41.9 Anxiety disorder, unspecified; F32.9 Major depressive disorder, single episode, unspecified; E89.0 Postprocedural hypothyroidism; Z51.5 Encounter for palliative care
CPT/HCPCS: 36415; 36591; 71045; 80048; 85025; 96361; 96372; 96374; 96375; 96376; 99284; G0378; J0780; J1170; J1642; J1650; J1885; J2405; J2765; J7050